=== PATIENT | female | born 1960 | race Caucasian/White ===

== ENCOUNTER 2023-05-06 13:33 | Outpatient (CLI) | payer MEDICAID, SELFPAY ==
[2023-05-06 13:31] LABS: Abs Immature Grans 0.04 10^3/uL (0.0-0.06); Absolute Basophil Count 0.08 10^3/uL (0.0-0.2); Absolute Eosinophil Count 0.01 10^3/uL (0.0-0.7); Absolute Lymphocyte Count 1.64 10^3/uL (1.2-3.4); Absolute Monocyte Count 0.45 10^3/uL (0.1-0.8); Absolute Neutrophil Count 8.42 10^3/uL (1.2-6.7); Basophils % 0.8; Eosinophils % 0.1; HCT 32.3 % (36.0-46.0); HGB 10.2 g/dL (11.2-15.7); Immature Grans % 0.4; Lymphocytes % 15.4; MCH 27.6 pg (27.0-33.0); MCHC 31.6 % (32.0-36.0); MCV 88 fL (80-95); MPV 9.2 fL (8.0-11.0); Monocytes % 4.2; Neutrophils % 79.1; Platelet Count 559 10^3/uL (130-400); RBC 3.69 10^6/uL (3.93-5.22); RDW 16.6 % (11.7-14.6); RDW-SD 53.5 fL; WBC 10.64 10^3/uL (4.4-10.8)
--- OUTSIDE RECORDS SUMMARY | 2023-05-06 13:34 | XMS_ITS | Continuity of Care Document ---
Author Name Unknown Organization [facility] Address [address] [place] [address] Encounter [facility] NBR [id number] Date(s): 04/06/23 - 04/06/23 [facility] [address] [place] [address]- [place] Encounter Diagnosis Pancreatic mass(Discharge Diagnosis) - 04/06/23 Portal vein thrombosis(Discharge Diagnosis) - 04/06/23 Other specified diseases of pancreas(Final) - Portal vein thrombosis(Final) - longterm (current) use of anticoagulants(Final) - Nicotine dependence, cigarettes, uncomplicated(Final) - Discharge Disposition: Home f/u External Provider Attending Physician: Elvis Bob MD Admitting Physician: Elvis Bob MD Allergies, Adverse Reactions, Alerts No Known Allergies Assessment and Plan Diagnostic Tests Pending * Lyme Disease (Borrelia Burgdorferi Abs) 04/06/23 * Acute Hepatitis LC 04/06/23 * Blood Culture 04/06/23 * Blood Culture 04/06/23 Medications Augmentin 500 mg-125 mg oral tablet 1 tab, Oral, every 12 hr, X 10 days, # 20 tab, 0 Refill(s), 04/16/23 6:05:00 PM [employer]ULATOR Start Date: 04/06/23 Stop Date: 04/16/23 Status: Ordered Eliquis Starter Pack for Treatment of DVT and PE 5 mg oral tablet 10 mg = 2 tab, Oral, BID, X 7 days, # 28 tab, 0 Refill(s), 04/13/23 6:05:00 PM RU[employer] Start Date: 04/06/23 Stop Date: 04/13/23 Status: Ordered Results Laboratory List Name Date Lactic Acid 04/06/23 Mononucleosis Screen 04/06/23 Automated Diff 04/06/23 .Morphology (LTTL) 04/06/23 CBC w/ Diff 04/06/23 Comprehensive Metabolic Panel (CMP) 03/10 01/29 PT/ INR 04/06/23 TSH w/ Rflx to Free T4 04/06/23 Urinalysis Microscopic 04/06/23 Urinalysis with Micro if Indicated and C ulture if Indicated 04/06/23 Most recent to oldest [Reference Range]: 1 WBC [4.8-10.8 K/mcL] 19.1 K/mcL *HI* (04/06/23 2:20 PM) RBC [4.20-5.40 Million/mcL] 4.18 Million /mcL *LOW* (04/06/23 2:20 PM) Neutro Auto [42.2-75.2 %] 84.0 % *HI* (04/06/23 2:20 PM) Lymph Auto [20.5-51.1 %] 9.4 % *LOW* (04/06/23 2:20 PM) [place] Auto [1.7-9.3 %] 5.6 % (04/06/23 2:20 PM) Basophil Auto [0.0-0.8 %] 0.4 % (04/06/23 2:20 PM) Prothrombin Time [9.1-10.6 seconds] 11.4 seconds *HI* (04/06/23 2:20 PM) INR [0.9-1.1] 1.2 1 *HI* (04/06/23 2:20 PM) BUN [7-25 mg/dL] 10 mg/dL (04/06/23 2:20 PM) UA Color [Yellow] Yellow (04/06/23 2:20 PM) UA WBC [0-3] 0-3 (04/06/23 2:20 PM) Glucose Level [70-109 mg/dL] 108 mg/dL (04/06/23 2:20 PM) Potassium Level [3.5-5.1 mmol/L] 4.0 mmo l/L (04/06/23 2:20 PM) Baso Absolute [0.0-0.2 K/mcL] 0.1 K/mcL (04/06/23 2:20 PM) MCV [81.0-99.0 fL] 83.9 fL (04/06/23 2:20 PM) UA Urobilinogen [0.2] 1.0 *ABN* (04/06/23 2:20 PM) RBC Morph [Normal] Abnormal *ABN* (04/06/23 2:20 PM) UA Bili [Negative] Moderate *ABN* (04/06/23 2:20 PM) UA Ketones [Negative] Trace *ABN* (04/06/23 2:20 PM) AST [13-39 IntlUnit/L] 43 IntlUnit/L *HI* (04/06/23 2:20 PM) ALT [7-52 IntlUnit/L] 78 IntlUnit/L *HI* (04/06/23 2:20 PM) MCHC [32.0-37.0 g/dL] 31.5 g/dL *LOW* (04/06/23 2:20 PM) Osmolality [275-295 mOsm/kg] 270 mOsm/kg *LOW* (04/06/23 2:20 PM) Sodium Level [136-145 mmol/L] 135 mmol/L *LOW* (04/06/23 2:20 PM) UA RBC [0-3] 0-3 (04/06/23 2:20 PM) UA Leuk Est [Negative] Negative (04/06/23 2:20 PM) Lymph Absolute [1.2-3.4 K/mcL] 1.8 K/mcL (04/06/23 2:20 PM) UA Nitrite [Negative] Positive *ABN* (04/06/23 2:20 PM) UA Glucose [Negative] Negative (04/06/23 2:20 PM) Hct [37.0-47.0 %] 35.1 % *LOW* (04/06/23 2:20 PM) UA Bacteria [None Seen] 2+ *ABN* (04/06/23 2:20 PM) Hypochromia 1+ *ABN* (04/06/23 2:20 PM) Calcium Level [8.6-10.3 mg/dL] 9.5 mg/dL (04/06/23 2:20 PM) [place] Absolute [0.1-0.6 K/mcL] 1.1 K/mcL *HI* (04/06/23 2:20 PM) Albumin Level [3.5-5.7 g/dL] 3.5 g/dL (04/06/23 2:20 PM) Protein Total [6.4-8.9 g/dL] 8.1 g/dL (04/06/23 2:20 PM) UA Protein [Negative] 30 *ABN* (04/06/23 2:20 PM) MCH [27.0-31.0 pg] 26.5 pg *LOW* (04/06/23 2:20 PM) Neutro Absolute [1.4-6.5 K/mcL] 16.0 K/m cL *HI* (04/06/23 2:20 PM) Bilirubin Total [0.3-1.0 mg/dL] 0.6 mg/d L (04/06/23 2:20 PM) Hgb [12.0-16.0 g/dL] 11.1 g/dL *LOW* (04/06/23 2:20 PM) Alk Phos [34-104 IntlUnit/L] 288 IntlUni t/L *HI* (04/06/23 2:20 PM) UA Blood [Negative] Moderate *ABN* (04/06/23 2:20 PM) MPV [7.4-10.4 fL] 7.1 fL *LOW* (04/06/23 2:20 PM) UA Spec Grav [1.001-1.030] >=1.030 *NA* (04/06/23 2:20 PM) Platelets [130-400 K/mcL] 505 K/mcL *HI* (04/06/23 2:20 PM) CO2 [21-31 mmol/L] 24 mmol/L (04/06/23 2:20 PM) Eos Absolute [0.0-0.2 K/mcL] 0.1 K/mcL (04/06/23 2:20 PM) Lactic Acid Lvl [0.5-2.2 mmol/L] 1.2 mmo l/L (04/06/23 5:45 PM) UA Squam Epithelial [0-3] 10-25 *ABN* (04/06/23 2:20 PM) TSH [0.45-5.33 mcIntlUnit/mL] 1.42 mcInt lUnit/mL (04/06/23 2:20 PM) UA pH [5.00-9.00] 5.00 (04/06/23 2:20 PM) UA Appear [Clear] Slightly Cloudy *ABN* (04/06/23 2:20 PM) Chloride Level [98-107 mmol/L] 98 mmol/L (04/06/23 2:20 PM) RDW-CV [11.5-14.5 %] 13.8 % (04/06/23 2:20 PM) A/G Ratio [1.0-2.5 g/dL] 0.8 g/dL *LOW* (04/06/23 2:20 PM) BUN/Creat Ratio [8.0-20.0] 16.7 (04/06/23 2:20 PM) Globulin [2.3-3.5 g/dL] 4.6 g/dL *HI* (04/06/23 2:20 PM) Slide Review Morph Only (04/06/23 2:20 PM) UA Culture Ind?. [No] No 2 (04/06/23 2:20 PM) Urine Srce Clean Catch (04/06/23 2:20 PM) Creatinine Level [0.60-1.20 mg/dL] 0.60 mg/dL (04/06/23 2:20 PM) Plt Estimation Increased *ABN* (04/06/23 2:20 PM) Anion Gap [3.0-12.0] 13.0 *HI* (04/06/23 2:20 PM) Eos, Auto [0.00-3.00 %] 0.60 % (04/06/23 2:20 PM) eGFR CKD-EPI [>=60 mL/min/1.73 m2] 103 m L/min/1.73 m2 (04/06/23 2:20 PM) Mononucleosis Screen [Negative] Negative (04/06/23 4:38 PM) 1Interpretive Data: THERAPEUTIC INR RANGES FOR WARFARIN Uncomplicated venous thromboembolic disease 2-3 Lupus Anticoagulant and recurrent thrombosis 3-3.5 Mechanical prosthetic valve or recurrent thrombosis 2.5-3.5 2Result Comment: Excessive squamous cells indicate superficial contamination; specimen is not suitable for culture. If a culture is clinically indicated, please submit a true clean catch specimen. Less than 1cc of urine received. Microscopic performed on unspun urine. Radiology Reports * Exam Date Time Procedure Performing Provider Status 04/06/23 4:[address] Abdomen and Pelvis w/ Contrast Col Lori lyons; Modified Notes: (CT Abdomen and Pelvis w/ Contrast) Reason For Exam: abd pain CT Abdomen and Pelvis w/ Contrast ADDENDUM THIS REPORT CONTAINS FINDINGS THAT MAY BE CRITICAL TO PATIENT CARE. The findings were verbally communicated via telephone conference with Margoth Arguelles at 5:23 PM EST on 04/06/2023. The findings were acknowledged and understood. THIS DOCUMENT HAS BEEN ELECTRONICALLY SIGNED BY DAVID CASSIDY MD on 04/06/2023 05:23 PM Final Signed by: David Cassidy MD Signed (Electronic Signature): 04/06/2023 5:[address] Abdomen and Pelvis w/ Contrast PROCEDURE INFORMATION: Exam: CT Abdomen And Pelvis With Contrast Exam date and time: 04/06/2023 4:40 PM Age: 62 years old Clinical indication: Abdominal pain; Acute; Additional info: Abd pain TECHNIQUE: Imaging protocol: Computed tomography of the abdomen and pelvis with contrast. Radiation optimization: All CT scans at this facility use at least one of these dose optimization techniques: automated exposure control; mA and/or kV adjustment per patient size (includes targeted exams where dose is matched to clinical indication); or iterative reconstruction. Contrast material: 300; Contrast volume: 100 ml; Contrast route: INTRAVENOUS (IV); REPORTING DATA: Count of CT and Cardiac NM exams in prior 12 months: This patient has received 0 known CTs and 0 known cardiac nuclear medicine studies in the 12 months prior to the current study. COMPARISON: CR XR CHEST, 2 VIEWS 04/06/2023 4:40 PM FINDINGS: Lungs: No consolidation, lung nodules, or pleural effusions. Liver: A 7.3 x 5.4 cm low-density mass is present in segment 5 of the liver. Segment 6 has a 4.5 cm low-density mass causes bulging of the liver capsule. Two low-density masses are present in segment 7 of the liver, the largest measuring 2.7 cm. Gallbladder and bile ducts: Gallbladder is contracted and has calcifications in its anterior wall. One or more calcified stones are suspected in the gallbladder neck. No pericholecystic fluid. No biliary ductal dilatation. Pancreas: A low-density 4.8 x 3 cm mass is present in the head of the pancreas and is in contact with 50% of the circumference of the portal vein. No other pancreas masses or ductal dilatation. Spleen: No splenomegaly. No masses or surrounding fluid. Adrenal glands: No mass. Kidneys and ureters: No hydronephrosis, calcified stones, or masses. Stomach and bowel: No intestinal masses, bowel wall thickening, or abnormal dilatation. Appendix: No evidence of appendicitis. Intraperitoneal space: No free air. No masses or significant fluid collection. Vasculature: Thrombus at the bifurcation of the portal vein causes near occlusion. Distal superior mesenteric vein has occluding thrombus. Lymph nodes: No enlarged lymph nodes. Urinary bladder: No masses or asymmetric wall thickening. Reproductive: Retroflexed uterus is appropriate in size and shape and has no myometrial masses. Bones/joints: No acute fracture or bone lesions. Soft tissues: No masses or other abnormalities. IMPRESSION: 1. Mass in the posterior head of the pancreas measures 4.8 x 3 cm and is in contact with 50% of the circumference of the main portal vein. 2. Near occluding portal vein thrombosis at the bifurcation. 3. 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 4. Several, low-density, metastatic liver masses, the largest in segment 5 measuring 7.3 cm. 5. Contracted gallbladder has a few calcified stones and has mild wall calcification which may indicate adenomyomatosis. No biliary ductal dilatation. THIS DOCUMENT HAS BEEN ELECTRONICALLY SIGNED BY DAVID CASSIDY MD on 04/06/2023 05:19 PM Final Signed by: David Cassidy MD Signed (Electronic Signature): 04/06/2023 5:19 pm * Exam Date Time Procedure Performing Provider Status 04/06/23 4:51 PM XR Chest 2 Views Reyes Pipera; Ksenia th (Verified) Notes: (XR Chest 2 Views) Reason For Exam: fever;Chest pain XR Chest 2 Views PROCEDURE INFORMATION: Exam: XR Chest Exam date and time: 04/06/2023 4:40 PM Age: 62 years old Clinical indication: Pain; Chest pressure; Additional info: Chest pain TECHNIQUE: Imaging protocol: Radiologic exam of the chest. Views: 2 views. COMPARISON: No relevant prior studies available. FINDINGS: Lungs: There are streaky linear bibasilar opacities. No consolidation Pleural spaces: Unremarkable. No pleural effusion. No pneumothorax. Heart/Mediastinum: Unremarkable. No cardiomegaly. Bones/joints: Unremarkable. IMPRESSION: Bibasilar scarring versus subsegmental atelectasis THIS DOCUMENT HAS BEEN ELECTRONICALLY SIGNED BY KEVYN FRANCES MD on 04/06/2023 07:27 PM Final Signed by: Kevyn Frances MD Signed (Electronic Signature): 04/06/2023 7:27 pm Vital Signs Most recent to oldest [Reference Range]: 1 Temperature Oral [35.8-37.3 Deg C] 37.1 Deg C (04/06/23 1:55 PM) Peripheral Pulse Rate [60-100 bpm] 98 bp m (04/06/23 1:55 PM) Blood Pressure [90-140/60-90 mmHg] 128/8 2mmHg (04/06/23 1:55 PM) Mean Arterial Pressure, Cuff [70-110 mmH g] 97 mmHg (04/06/23 1:55 PM) Weight 74.69 kg (04/06/23 1:55 PM) Weight Dosing 74.690 kg (04/06/23 1:55 PM) Height 170.18 cm (04/06/23 1:55 PM) Body Mass Index 25.79 kg/m2 (04/06/23 1:55 PM) Social History Social History Type Response Tobacco Current everyday tob acco user Tobacco Use:. 1 pk per day. Sex Hospital Discharge Instructions Patient Education 04/06/2023 18:15:19 Portal Vein Thrombosis Portal Vein Thrombosis Portal vein thrombosis (PVT) is a blockage from a blood clot in the vein that carries blood from the intestines to the liver (portal vein). PVT can also develop in the branches of the portal vein. The clot may form quickly or develop over time. PVT may slow down or completely stop blood flow. PVT is treatable, but it can be life-threatening. What are the causes? PVT is caused by a blood clot. In many cases, the cause of the clot is not known. Any condition that increases blood clotting can cause PVT. What increases the risk? You are at risk of PVT if you have any condition that increases the clotting of blood. These conditions include: ??? Scarring of the liver (cirrhosis). ??? Cancer, especially of the liver or pancreas. ??? Infections of the pancreas or gallbladder. ??? Blood-clotting disorders. ??? Surgery or injury of the abdomen. ??? Infllammatory disorders such as Crohn's disease or ulcerative colitis. What are the signs or symptoms? PVT often does not cause signs or symptoms. In some cases, you may have gastrointestinal (GI) bleeding from a backup of blood flow because of the blockage. This is caused by the veins that have become wide (dilated). Other signs and symptoms of PVT may include: ??? Pain in the abdomen. ??? Nausea or vomiting. ??? Swelling of the abdomen from too much fluid (ascites). ??? Fever. ??? Enlarged spleen. ??? Gastrointestinal (GI) bleeding from swollen blood vessels in the esophagus or stomach. If this happens, you may: ??? Vomit blood. ??? Have bloody diarrhea. ??? Have black, tarry stools. How is this diagnosed? This condition may be diagnosed based on your symptoms and risk factors. Your health care provider will: ??? Give you a physical exam. ??? Take imaging studies of your abdomen. These may include ultrasound, CT scan, or MRI. ??? Give you tests to check for liver function or infection. These are also done to confirm the diagnosis. How is this treated? Treatment of PVT depends on the cause and severity of your condition. It may also include treatmentfor any underlying conditions. This condition may be treated with: ??? Medicines to: ??? Break up a blood clot. ??? Prevent clotting (anticoagulants). ??? Lower your blood pressure. ??? Improve blood flow to your liver (octreotide). ??? Surgery to: ??? Stop bleeding in the stomach or esophagus. This procedure is usually done using a scope passed through your mouth (endoscopic surgery). ??? Restore blood flow through the blood clot, or around it (shunt surgery). Follow these instructions at home: Medicines ??? Take euii-kcp-ntlxrty and prescription medicines only as told by your health care provider. ??? If you were prescribed an antibiotic medicine, take it as told by your health care provider. Donot stop using the antibiotic even if you start to feel better. Blood thinners If you are taking blood thinners: ??? Talk with your health care provider before you take any medicines that contain aspirin or NSAIDs, such as ibuprofen. These medicines increase your risk for dangerous bleeding. ??? Get approval from your health care provider before you start taking any new medicines, vitamins, or herbal products. Some of these could interfere with your therapy. ??? Take your medicine exactly as told, at the same time every day. ??? Avoid activities that could cause injury or bruising, and follow instructions about how to prevent falls. ??? Wear a medical alert bracelet or carry a card that lists what medicines you take. Your health care provider may ask you to: ??? Have blood tests done regularly so that your medicines may be changed if needed. ??? Limit foods that have vitamin K. Vitamin K affects how some blood thinners work in the body. ??? Some common foods that contain high amounts of vitamin K include kale, spinach, and broccoli. ??? Work with a diet and supervisor nutritional yeast (dietitian) to make an eating plan that is right for you. Lifestyle ??? Eat foods that are high in fiber, such as fresh fruits and vegetables, whole grains, and beans. ??? Limit foods that are high in fat and processed sugars, such as fried and sweet foods. ??? Do not use any products that contain nicotine or tobacco. These products include cigarettes, chewing tobacco, and vaping devices, such as e-cigarettes. If you need help quitting, ask your health care provider. ??? Do not drink alcohol. Alcohol can damage your liver. ??? Ask your health care provider if you have other fluid or diet restrictions. General instructions ??? Return to your normal activities as told by your health care provider. Ask your health care provider what activities are safe for you. ??? Keep all follow-up visits. Your health care provider will monitor your condition and you may beasked to have regular blood tests if you are taking blood thinners. Contact a health care provider if: ??? You have chills or a fever. ??? You have any signs or symptoms that get worse or come back. ??? There is blood in your stool. ??? You have black, tarry stools. Get help right away if: ??? You vomit blood. ??? You have fresh blood or blood clots in your stool. Summary ??? Portal vein thrombosis (PVT) is a blockage from a blood clot in the vein that carries blood from your intestines to your liver (portal vein). Any condition that increases blood clotting can causePVT. ??? PVT often does not cause signs or symptoms but may cause gastrointestinal bleeding, which may cause a backup of blood. ??? Sometimes, PVT can cause swelling in the abdomen from fluid buildup (ascites), pain in the abdomen, and bleeding from the esophagus or stomach. ??? Treatment of PVT depends on the cause and severity of your condition. Treatment may include medicines and sometimes surgery. ??? You may be asked to limit your intake of foods that have vitamin K. Vitamin K may affect the way some blood thinners work in the body. This information is not intended to replace advice given to you by your health care provider. Make sure you discuss any questions you have with your health care provider. Document Revised: 05/20/2022 Document Reviewed: 05/20/2022 [employer] Patient Education ?? 2022 [employer] Follow Up Care 04/06/2023 13:55:51 With:Follow up with specialist Address:Unknown When:1 month Physician Emergency department Note * LAMAR Hand: PERFORM Event Display: ED Note Physician Authored Date: [id number] ANDRESSA EUGENE Daryl :1960 Age:62 years Sex:Female Visit Date:04/06/2023 Basic Information Time Seen: LAMAR Hand / 04/06/2023 14:06 Chief Complaint fever , hot / cold chills x week , seen in . NEG strep & Covid . presents ??ddue to not being better ??- no work x 1 week . NO PCP History Of Present Illness: Patient is a 62-year-old female here for concerns of generalized fatigue and fevers over the past week. ??Patient notes chronic fatigue for months??and states that she typically has a nap midway through the day and still goes to bed early however this has been worsening over the past 2 weeks. ??Sheis also now noticing fevers that happen sporadically throughout the day??for the past week. ??Tmax has been 102.4 F. ??When she??is having a fever she experiences??chills and sweats as well. ??Statesthat for the past??week she is woken up??with night sweats. ??Denies any headache, dizziness, coughor shortness of breath. ??She denies chest pain. ??Denies any abdominal pain nausea vomiting??or diarrhea. ??Denies any??dysuria urgency or frequency. She was seen in an urgent care last week and tested negative for COVID and the flu. Review of Systems: See HPI Physical Exam Vitals & Measurements T:??37.1?C ??(Oral)?? HR:??98??(Peripheral)?? BP:??128/82?? SpO2:??99%?? HT:??170.18??cm?? WT:??74.69??kg?? BMI:??25.79?? General: Patient is alert and engaging, appears well. Is in no acute distress. Speaking comfortablyin full sentences.?? Constitutional: No fevers, chills or diaphoresis.?? HEENT: Head normocephalic and atraumatic. Neck supple with FROM w/o lymphadenopathy or JVD. Tracheamidline. No c-spine tenderness. EOMs intact w/o pain. Pupils equal and reactive to light. Respiratory: ??No obvious work of breathing, regular rate. BS equal b/l, clear to auscultation. Cardiovascular: Heart regular rate and rhythm w/o murmurs, rubs or gallops. No peripheral edema present.?? GI: normoactive BS. Abdomen soft non tender, nondistended without guarding, rebound or rigidity. NoHSM Extremities: No obvious deformities. FROM.?? Integumentary: Skin warm and pink. No rashes or ecchymosis present.?? Neuro: CN III-XII grossly intact.?? Psychiatric: acting appropriate for age and circumstance. Normal mood without obvious ??affect.?? Medical Decision Making: Patient is a pleasant??62-year-old female here for concerns of fatigue and intermittent fever for the past week. ??Vitals obtained and reviewed. ??She is afebrile while in the emergency department, blood pressure 128/82, pulse 98 and oxygen 99 on room air.?She appears comfortable??on the bed in no acute distress.?Exam as described above. ??She is not experiencing??any respiratory symptoms??or abdominal pain??on palpation.?Labs obtained showing elevated WBC, liver enzymes and platelets.??Also concern??for??infection??in her urine. ??Initially concern for pyelonephritis??with a positive UA and history of nausea. ??However because of the elevated liver enzymes and fever I did obtain a CT of the abdomen with contrast,??Monospot and hepatitis panel. ??Lactic 1.2.?? Monospot negative. ??CT scan showed pancreatic mass in contact with 50% of the main portal vein.?? Portal vein thrombosis as well as occluding thrombus in the distal superior mesenteric vein 17:52 call made to [facility] [place]??for consult with GI??and likely transfer. 18:[address] Hooks, who reviewed the scans and??believes it likely to be a??pancreatic adenocarcinoma with metastasis to the??liver.?? Says because the patient is??not experiencing any pain, able to tolerate p.o. fluids and food??and is having no ductal dilation of the pancreatic or thebile duct there is no need for emergent??biopsy or stenting. ??She does recommend??Eliquis for the thrombosis and??close??follow-up in office. ??States that she will have her??schedulers contact the patient for follow-up next week. I discussed the possibility of??malignancy??and the CT findings with the patient and her family in depth. ??All questions??that they have currently were answered. ??Will also start on Augmentin to cover for abdominal infection as well as suspected pyelonephritis. Procedure No Qualifying Data Assessment/Plan 1.??Pancreatic mass??K86.89 Patient discharged home with plans to talk to [facility] schedular tomorrow to make plans for follow up within 7 days. Started on Eliquis and Augmentin. Strict return precautions with fever, abdominal pains, dizziness, syncope, chest pains, shortness of breath or any falls. Ordered: Augmentin 500 mg-125 mg oral tablet, 1 tab, Oral, every 12 hr, X 10 days, # 20 tab, 0 Refill(s), 04/16/23 19:05:00 EST amoxicillin-clavulanate 875 mg-125 mg oral tablet, 1 tab, Oral, Tab, Once, Antibiotic Indication UTI, complicated/pyelonephritis, First Dose: 04/06/23 20:00:00 EST, Stop Date: 04/06/23 20:00:00 EST, Physician Stop, Routine, augmentin Eliquis, 10 mg = 2 tab, Oral, Tab, Once, First Dose: 04/06/23 20:00:00 EST, Stop Date: 04/06/23 20:00:00 EST, Physician Stop, Routine Eliquis Starter Pack for Treatment of DVT and PE 5 mg oral tablet, 10 mg = 2 tab, Oral, BID, X 7 days, # 28 tab, 0 Refill(s), 04/13/23 19:05:00 EST Discharge Patient, 04/06/23 19:18:00 EST ?? 2.??Portal vein thrombosis??I81 Ordered: Augmentin 500 mg-125 mg oral tablet, 1 tab, Oral, every 12 hr, X 10 days, # 20 tab, 0 Refill(s), 04/16/23 19:05:00 EST amoxicillin-clavulanate 875 mg-125 mg oral tablet, 1 tab, Oral, Tab, Once, Antibiotic Indication UTI, complicated/pyelonephritis, First Dose: 04/06/23 20:00:00 EST, Stop Date: 04/06/23 20:00:00 EST, Physician Stop, Routine, augmentin Eliquis, 10 mg = 2 tab, Oral, Tab, Once, First Dose: 04/06/23 20:00:00 EST, Stop Date: 04/06/23 20:00:00 EST, Physician Stop, Routine Eliquis Starter Pack for Treatment of DVT and PE 5 mg oral tablet, 10 mg = 2 tab, Oral, BID, X 7 days, # 28 tab, 0 Refill(s), 04/13/23 19:05:00 EST Discharge Patient, 04/06/23 19:18:00 EST ?? Orders: Acute Hepatitis LC, Blood, Stat, 04/06/23 16:10:00 EST, Once, Nurse collect Blood Culture, Periph Bld, Arm R, Routine collect, RT - Routine, 04/06/23 17:30:00 EST, Once, Lab Collect, Print Label Blood Culture, Periph Bld, Arm R, Routine collect, RT - Routine, 04/06/23 17:30:00 EST, Once, Lab Collect, Print Label Lyme Disease (Borrelia Burgdorferi Abs), Blood, Stat, 04/06/23 14:29:00 EST, Once, Nurse collect XR Chest 2 Views, 04/06/23 16:08:00 EST, Stat, Reason: Chest pain, Reason: fever, Transport Mode: Stretcher Patient Education Portal Vein Thrombosis Follow Up With When Contact Information Follow up with specialist Within 1 month Additional Instructions: Medication Reconciliation New Prescription amoxicillin-clavulanate (Augmentin 500 mg-125 mg oral tablet)1 tab Oral (given by mouth) every 12 hours for 10 Days. Refills: 0. ?? apixaban (Eliquis Starter Pack for Treatment of DVT and PE 5 mg oral tablet)2 tab Oral (given by mouth) 2 times a day for 7 Days. Refills: 0. Problem List/Past Medical History Ongoing Tobacco user Historical No qualifying data Medication Administration Given Sodium Chloride 0.9%, 1000 mL, Hydration Bolus amoxicillin-clavulanate 875 mg-125 mg oral tablet, 1 tab, Oral. For: Pancreatic mass,??Portal vein thrombosis Eliquis, 10 mg, Oral. For: Pancreatic mass,??Portal vein thrombosis Allergies No Known Allergies Social History Electronic Cigarette/Vaping Electronic Cigarette Use: Never. Tobacco Current everyday tobacco user Tobacco Use:. 1 pk per day. Diagnostic Results CT Abdomen and Pelvis w/ Contrast 04/06/2023 17:24 EST XR Chest 2 Views 04/06/2023 19:28 EST XR Chest 2 Views ?? 04/06/23 16:40:20 PROCEDURE INFORMATION: Exam: XR Chest Exam date and time: 04/06/2023 4:40 PM Age: 62 years old Clinical indication: Pain; Chest pressure; Additional info: Chest pain ?? TECHNIQUE: Imaging protocol: Radiologic exam of the chest. Views: 2 views. ?? COMPARISON: No relevant prior studies available. ?? FINDINGS: Lungs: There are streaky linear bibasilar opacities. No consolidation Pleural spaces: Unremarkable. No pleural effusion. No pneumothorax. Heart/Mediastinum: Unremarkable. No cardiomegaly. Bones/joints: Unremarkable. ?? IMPRESSION: Bibasilar scarring versus subsegmental atelectasis ? THIS DOCUMENT HAS BEEN ELECTRONICALLY SIGNED BY KEVYN FRANCES MD on 04/06/2023 07:27 PM ?? Signed By: Kevyn Frances MD ?? CT Abdomen and Pelvis w/ Contrast ?? 04/06/23 16:40:33 PROCEDURE INFORMATION: Exam: CT Abdomen And Pelvis With Contrast Exam date and time: 04/06/2023 4:40 PM Age: 62 years old Clinical indication: Abdominal pain; Acute; Additional info: Abd pain ?? TECHNIQUE: Imaging protocol: Computed tomography of the abdomen and pelvis with contrast. Radiation optimization: All CT scans at this facility use at least one of these dose optimization techniques: automated exposure control; mA and/or kV adjustment per patient size (includes targeted exams where dose is matched to clinical indication); or iterative reconstruction. Contrast material: 300; Contrast volume: 100 ml; Contrast route: INTRAVENOUS (IV); ?? REPORTING DATA: Count of CT and Cardiac NM exams in prior 12 months: This patient has received 0 known CTs and 0 known cardiac nuclear medicine studies in the 12 months prior to the current study. ?? COMPARISON: CR XR CHEST, 2 VIEWS 04/06/2023 4:40 PM ?? FINDINGS: Lungs: No consolidation, lung nodules, or pleural effusions. ?? Liver: A 7.3 x 5.4 cm low-density mass is present in segment 5 of the liver. Segment 6 has a 4.5 cm low-density mass causes bulging of the liver capsule. Two low-density masses are present in segment 7 of the liver, the largest measuring 2.7 cm. Gallbladder and bile ducts: Gallbladder is contracted and has calcifications in its anterior wall. One or more calcified stones are suspected in the gallbladder neck. No pericholecystic fluid. No biliary ductal dilatation. Pancreas: A low-density 4.8 x 3 cm mass is present in the head of the pancreas and is in contact with 50% of the circumference of the portal vein. No other pancreas masses or ductal dilatation. Spleen: No splenomegaly. No masses or surrounding fluid. Adrenal glands: No mass. Kidneys and ureters: No hydronephrosis, calcified stones, or masses. Stomach and bowel: No intestinal masses, bowel wall thickening, or abnormal dilatation. Appendix: No evidence of appendicitis. ?? Intraperitoneal space: No free air. No masses or significant fluid collection. Vasculature: Thrombus at the bifurcation of the portal vein causes near occlusion. Distal superior mesenteric vein has occluding thrombus. Lymph nodes: No enlarged lymph nodes. Urinary bladder: No masses or asymmetric wall thickening. Reproductive: Retroflexed uterus is appropriate in size and shape and has no myometrial masses. Bones/joints: No acute fracture or bone lesions. Soft tissues: No masses or other abnormalities. ?? IMPRESSION: 1. Mass in the posterior head of the pancreas measures 4.8 x 3 cm and is in contact with 50% of the circumference of the main portal vein. 2. Near occluding portal vein thrombosis at the bifurcation. 3. 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 4. Several, low-density, metastatic liver masses, the largest in segment 5 measuring 7.3 cm. 5. Contracted gallbladder has a few calcified stones and has mild wall calcification which may indicate adenomyomatosis. No biliary ductal dilatation. ? THIS DOCUMENT HAS BEEN ELECTRONICALLY SIGNED BY DAVID CASSIDY MD on 04/06/2023 05:19 PM ?? Signed By: David Cassidy MD ?? 04/06/23 16:40:33 ADDENDUM THIS REPORT CONTAINS FINDINGS THAT MAY BE CRITICAL TO PATIENT CARE. The findings were verbally communicated via telephone conference with Margoth Arguelles at 5:23 PM EST on 04/06/2023. The findings were acknowledged and understood. ?? THIS DOCUMENT HAS BEEN ELECTRONICALLY SIGNED BY DAVID CASSIDY MD on 04/06/2023 05:23 PM ?? Signed By: David Cassidy MD Lab Results CBC and Differential?? LATEST RESULTS?? WBC?? 04/06/23 14:20?? 19.1 ??High?? RBC?? 04/06/23 14:20?? 4.18 ??Low?? Hgb?? 04/06/23 14:20?? 11.1 ??Low?? Hct?? 04/06/23 14:20?? 35.1 ??Low?? MCV?? 04/06/23 14:20?? 83.9?? MCH?? 04/06/23 14:20?? 26.5 ??Low?? MCHC?? 04/06/23 14:20?? 31.5 ??Low?? RDW-CV?? 04/06/23 14:20?? 13.8?? Platelets?? 04/06/23 14:20?? 505 ??High?? MPV?? 04/06/23 14:20?? 7.1 ??Low?? Neutro Auto?? 04/06/23 14:20?? 84.0 ??High?? Lymph Auto?? 04/06/23 14:20?? 9.4 ??Low?? [place] Auto?? 04/06/23 14:20?? 5.6?? Eos, Auto?? 04/06/23 14:20?? 0.60?? Basophil Auto?? 04/06/23 14:20?? 0.4?? Neutro Absolute?? 04/06/23 14:20?? 16.0 ??High?? Lymph Absolute?? 04/06/23 14:20?? 1.8?? [place] Absolute?? 04/06/23 14:20?? 1.1 ??High?? Eos Absolute?? 04/06/23 14:20?? 0.1?? Baso Absolute?? 04/06/23 14:20?? 0.1?? RBC Morph?? 04/06/23 14:20?? Abnormal Abnormal?? Hypochromia?? 04/06/23 14:20?? 1+ Abnormal?? Plt Estimation?? 04/06/23 14:20?? Increased Abnormal?? Slide Review?? 04/06/23 14:20?? Morph Only? Coagulation?? LATEST RESULTS?? Prothrombin Time?? 04/06/23 14:20?? 11.4 ??High?? INR?? 04/06/23 14:20?? 1.2 ??High? Routine Chemistry?? LATEST RESULTS?? Sodium Level?? 04/06/23 14:20?? 135 ??Low?? Potassium Level?? 04/06/23 14:20?? 4.0?? Chloride Level?? 04/06/23 14:20?? 98?? CO2?? 04/06/23 14:20?? 24?? Alk Phos?? 04/06/23 14:20?? 288 ??High?? AST?? 04/06/23 14:20?? 43 ??High?? ALT?? 04/06/23 14:20?? 78 ??High?? BUN?? 04/06/23 14:20?? 10?? Glucose Level?? 04/06/23 14:20?? 108?? Creatinine Level?? 04/06/23 14:20?? 0.60?? BUN/Creat Ratio?? 04/06/23 14:20?? 16.7?? eGFR CKD-EPI?? 04/06/23 14:20?? 103?? Calcium Level?? 04/06/23 14:20?? 9.5?? Protein Total?? 04/06/23 14:20?? 8.1?? Albumin Level?? 04/06/23 14:20?? 3.5?? Globulin?? 04/06/23 14:20?? 4.6 ??High?? A/G Ratio?? 04/06/23 14:20?? 0.8 ??Low?? Bilirubin Total?? 04/06/23 14:20?? 0.6?? Anion Gap?? 04/06/23 14:20?? 13.0 ??High?? Lactic Acid Lvl?? 04/06/23 17:45?? 1.2?? Osmolality?? 04/06/23 14:20?? 270 ??Low? Thyroid Studies?? LATEST RESULTS?? TSH?? 04/06/23 14:20?? 1.42? UA Macroscopic?? LATEST RESULTS?? Urine Srce?? 04/06/23 14:20?? Clean Catch?? UA Color?? 04/06/23 14:20?? Yellow?? UA Appear?? 04/06/23 14:20?? Slightly Cloudy Abnormal?? UA Glucose?? 04/06/23 14:20?? Negative?? UA Bili?? 04/06/23 14:20?? Moderate Abnormal?? UA Ketones?? 04/06/23 14:20?? Trace Abnormal?? UA Spec Grav?? 04/06/23 14:20?? >=1.030?? UA Blood?? 04/06/23 14:20?? Moderate Abnormal?? UA pH?? 04/06/23 14:20?? 5.00?? UA Protein?? 04/06/23 14:20?? 30 Abnormal?? UA Urobilinogen?? 04/06/23 14:20?? 1.0 Abnormal?? UA Nitrite?? 04/06/23 14:20?? Positive Abnormal?? UA Leuk Est?? 04/06/23 14:20?? Negative?? UA Culture Ind?.?? 04/06/23 14:20?? No? UA Microscopic?? LATEST RESULTS?? UA WBC?? 04/06/23 14:20?? 0-3?? UA RBC?? 04/06/23 14:20?? 0-3?? UA Squam Epithelial?? 04/06/23 14:20?? 10-25 Abnormal?? UA Bacteria?? 04/06/23 14:20?? 2+ Abnormal? Infectious Disease?? LATEST RESULTS?? Mononucleosis Screen?? 04/06/23 16:38?? Negative? Electronically Signed on 04/06/23 07:38 PM [facility] Emergency department Discharge instructions * [facility]: PERFORM Event Display: ED Discharge Information Authored Date: [id number] RENATALUZANDRESSA DRUMMOND :1960 Age:62 years Sex:Female Visit Date:04/06/2023 Discharge Instructions We would like to thank you for allowing us to assist you with your healthcare needs. The following includes patient education materials and information regarding your injury/illness. Diagnosis from Today's Visit Pancreatic mass Portal vein thrombosis Discharge Vitals Temperature??(Oral) 98.8 ??F (37.1 ??C) Heart Rate??(Peripheral) 98 Blood Pressure?? 128/82?? Height?? 67.00 in (170.18 cm) Weight?? 164.69 lb (74.69 kg) BMI?? 25.79 Allergies No Known Allergies What to Do Next Instructions from Your Care Team You were evaluated in the emergency department??and on the CT scan of your abdomen??there is concern for a??pancreatic??and liver??masses.?? Also present is a??portal vein??and??superior mesenteric vein thrombosis. ??These are blood clots??in??that vasculature.?? I am also concerned about a possible pyelonephritis. ??I spoken with??Dr. Hooks at [facility] and??she does not believe you need??emergent??stenting or biopsy??however you should be seen for follow-up by gastroenterology within the next week. ??Her camp advisor is going to reach out??to you tomorrow to set up this appointment. ??Please keep this appointment as scheduled.?? I am going to start you on an Augmentin which will cover both abdominal infections as well as??urinary infection??and a blood thinner called Eliquis for the blood clots.?? When taking a blood thinner??there is always a bleeding risks. ??If youdo start??to??feel??dizzy experience a headache??or have any falls or??accidents please be evaluated immediately in the emergency department. ??Please also be evaluated with any worsening of the fevers or any abdominal pains. You Need to Schedule the Following Appointments Follow Up with??Follow up with specialist When:??Within 1 month You were treated today on an emergency basis; it may be landa to contact your primary care provider to notify them of your visit today. You may have been referred to your regular doctor or a specialist, please follow up as instructed. If your condition worsens or you can't get in to see the doctor, contact the Emergency Department. Medications What How Much When Why Instructions Next Dose New amoxicillin-clavulanate (Augmentin 500 mg-125 mg oral tablet) 1 tab Oral (given by mouth) Every 12 hours Pancreatic mass Portal vein thrombosis Duration: 10 Days Printed Prescription New apixaban (Eliquis Starter Pack for Treatment of DVT and PE 5 mg oral tablet) 2 tab Oral (given by mouth) 2 times a day Pancreatic mass Portal vein thrombosis Duration: 7 Days Printed Prescription Education Materials Portal Vein Thrombosis Portal vein thrombosis (PVT) is a blockage from a blood clot in the vein that carries blood from the intestines to the liver (portal vein). PVT can also develop in the branches of the portal vein. The clot may form quickly or develop over time. PVT may slow down or completely stop blood flow. PVT is treatable, but it can be life-threatening. What are the causes? PVT is caused by a blood clot. In many cases, the cause of the clot is not known. Any condition that increases blood clotting can cause PVT. What increases the risk? You are at risk of PVT if you have any condition that increases the clotting of blood. These conditions include: ? Scarring of the liver (cirrhosis). ? Cancer, especially of the liver or pancreas. ? Infections of the pancreas or gallbladder. ? Blood-clotting disorders. ? Surgery or injury of the abdomen. ? Infllammatory disorders such as Crohn's disease or ulcerative colitis. What are the signs or symptoms? PVT often does not cause signs or symptoms. In some cases, you may have gastrointestinal (GI) bleeding from a backup of blood flow because of the blockage. This is caused by the veins that have become wide (dilated). Other signs and symptoms of PVT may include: ? Pain in the abdomen. ? Nausea or vomiting. ? Swelling of the abdomen from too much fluid (ascites). ? Fever. ? Enlarged spleen. ? Gastrointestinal (GI) bleeding from swollen blood vessels in the esophagus or stomach. If this happens, you may: ? Vomit blood. ? Have bloody diarrhea. ? Have black, tarry stools. How is this diagnosed? This condition may be diagnosed based on your symptoms and risk factors. Your health care provider will: ? Give you a physical exam. ? Take imaging studies of your abdomen. These may include ultrasound, CT scan, or MRI. ? Give you tests to check for liver function or infection. These are also done to confirm the diagnosis. How is this treated? Treatment of PVT depends on the cause and severity of your condition. It may also include treatmentfor any underlying conditions. This condition may be treated with: ? Medicines to: ? Break up a blood clot. ? Prevent clotting (anticoagulants). ? Lower your blood pressure. ? Improve blood flow to your liver (octreotide). ? Surgery to: ? Stop bleeding in the stomach or esophagus. This procedure is usually done using a scope passed through your mouth (endoscopic surgery). ? Restore blood flow through the blood clot, or around it (shunt surgery). Follow these instructions at home: Medicines ? Take [id number] and prescription medicines only as told by your health care provider. ? If you were prescribed an antibiotic medicine, take it as told by your health care provider. Do notstop using the antibiotic even if you start to feel better. Blood thinners If you are taking blood thinners: ? Talk with your health care provider before you take any medicines that contain aspirin or NSAIDs, such as ibuprofen. These medicines increase your risk for dangerous bleeding. ? Get approval from your health care provider before you start taking any new medicines, vitamins, orherbal products. Some of these could interfere with your therapy. ? Take your medicine exactly as told, at the same time every day. ? Avoid activities that could cause injury or bruising, and follow instructions about how to prevent falls. ? Wear a medical alert bracelet or carry a card that lists what medicines you take. Your health care provider may ask you to: ? Have blood tests done regularly so that your medicines may be changed if needed. ? Limit foods that have vitamin K. Vitamin K affects how some blood thinners work in the body. ? Some common foods that contain high amounts of vitamin K include kale, spinach, and broccoli. ? Work with a diet and supervisor nutritional yeast (dietitian) to make an eating plan that is right for you. Lifestyle ? Eat foods that are high in fiber, such as fresh fruits and vegetables, whole grains, and beans. ? Limit foods that are high in fat and processed sugars, such as fried and sweet foods. ? Do not use any products that contain nicotine or tobacco. These products include cigarettes, chewing tobacco, and vaping devices, such as e-cigarettes. If you need help quitting, ask your health careprovider. ? Do not drink alcohol. Alcohol can damage your liver. ? Ask your health care provider if you have other fluid or diet restrictions. General instructions ? Return to your normal activities as told by your health care provider. Ask your health care provider what activities are safe for you. ? Keep all follow-up visits. Your health care provider will monitor your condition and you may be asked to have regular blood tests if you are taking blood thinners. Contact a health care provider if: ? You have chills or a fever. ? You have any signs or symptoms that get worse or come back. ? There is blood in your stool. ? You have black, tarry stools. Get help right away if: ? You vomit blood. ? You have fresh blood or blood clots in your stool. Summary ? Portal vein thrombosis (PVT) is a blockage from a blood clot in the vein that carries blood from your intestines to your liver (portal vein). Any condition that increases blood clotting can cause PVT. ? PVT often does not cause signs or symptoms but may cause gastrointestinal bleeding, which may causea backup of blood. ? Sometimes, PVT can cause swelling in the abdomen from fluid buildup (ascites), pain in the abdomen,and bleeding from the esophagus or stomach. ? Treatment of PVT depends on the cause and severity of your condition. Treatment may include medicines and sometimes surgery. ? You may be asked to limit your intake of foods that have vitamin K. Vitamin K may affect the way some blood thinners work in the body. This information is not intended to replace advice given to you by your health care provider. Make sure you discuss any questions you have with your health care provider. Document Revised: 05/20/2022 Document Reviewed: 05/20/2022 [employer] Patient Education ?? 2022 [employer] Tests Performed Radiology CT Abdomen and Pelvis w/ Contrast 04/06/2023 17:24 EST Medications and Immunizations Administered Given Sodium Chloride 0.9%, 1000 mL, Hydration Bolus Lab Test Name Test Result Date/Time WBC 19.1 K/mcL 04/06/2023 14:20 EST RBC 4.18 Million/mcL 04/06/2023 14:20 EST Hgb 11.1 g/dL 04/06/2023 14:20 EST Hct 35.1 % 04/06/2023 14:20 EST MCV 83.9 fL 04/06/2023 14:20 EST MCH 26.5 pg 04/06/2023 14:20 EST MCHC 31.5 g/dL 04/06/2023 14:20 EST RDW-CV 13.8 % 04/06/2023 14:20 EST Platelets 505 K/mcL 04/06/2023 14:20 EST MPV 7.1 fL 04/06/2023 14:20 EST Neutro Auto 84.0 % 04/06/2023 14:20 EST Lymph Auto 9.4 % 04/06/2023 14:20 EST [place] Auto 5.6 % 04/06/2023 14:20 EST Eos, Auto 0.60 % 04/06/2023 14:20 EST Basophil Auto 0.4 % 04/06/2023 14:20 EST Neutro Absolute 16.0 K/mcL 04/06/2023 14:20 EST Lymph Absolute 1.8 K/mcL 04/06/2023 14:20 EST [place] Absolute 1.1 K/mcL 04/06/2023 14:20 EST Eos Absolute 0.1 K/mcL 04/06/2023 14:20 EST Baso Absolute 0.1 K/mcL 04/06/2023 14:20 EST RBC Morph Abnormal 04/06/2023 14:20 EST Hypochromia 1+ 04/06/2023 14:20 EST Plt Estimation Increased 04/06/2023 14:20 EST Slide Review Morph Only 04/06/2023 14:20 EST Prothrombin Time 11.4 seconds 04/06/2023 14:20 EST INR 1.2 04/06/2023 14:20 EST Sodium Level 135 mmol/L 04/06/2023 14:20 EST Potassium Level 4.0 mmol/L 04/06/2023 14:20 EST Chloride Level 98 mmol/L 04/06/2023 14:20 EST CO2 24 mmol/L 04/06/2023 14:20 EST Alk Phos 288 IntlUnit/L 04/06/2023 14:20 EST AST 43 IntlUnit/L 04/06/2023 14:20 EST ALT 78 IntlUnit/L 04/06/2023 14:20 EST BUN 10 mg/dL 04/06/2023 14:20 EST Glucose Level 108 mg/dL 04/06/2023 14:20 EST Creatinine Level 0.60 mg/dL 04/06/2023 14:20 EST BUN/Creat Ratio 16.7 04/06/2023 14:20 EST eGFR CKD-EPI 103 mL/min/1.73 m2 04/06/2023 14:20 EST Calcium Level 9.5 mg/dL 04/06/2023 14:20 EST Protein Total 8.1 g/dL 04/06/2023 14:20 EST Albumin Level 3.5 g/dL 04/06/2023 14:20 EST Globulin 4.6 g/dL 04/06/2023 14:20 EST A/G Ratio 0.8 g/dL 04/06/2023 14:20 EST Bilirubin Total 0.6 mg/dL 04/06/2023 14:20 EST Anion Gap 13.0 04/06/2023 14:20 EST Lactic Acid Lvl 1.2 mmol/L 04/06/2023 17:45 EST Osmolality 270 mOsm/kg 04/06/2023 14:20 EST TSH 1.42 mcIntlUnit/mL 04/06/2023 14:20 EST Urine Srce Clean Catch 04/06/2023 14:20 EST UA Color YELLOW. 04/06/2023 14:20 EST UA Appear SL CLOUDY 04/06/2023 14:20 EST UA Glucose NEGATIVE 04/06/2023 14:20 EST UA Bili MODERATE Clinitek 04/06/2023 14:20 EST UA Ketones TRACE 04/06/2023 14:20 EST UA Spec Grav >=1.030 04/06/2023 14:20 EST UA Blood MODERATE Clinitek 04/06/2023 14:20 EST UA pH 5.00 04/06/2023 14:20 EST UA Protein 30 04/06/2023 14:20 EST UA Urobilinogen 1.0 04/06/2023 14:20 EST UA Nitrite POSITIVE 04/06/2023 14:20 EST UA Leuk Est NEGATIVE 04/06/2023 14:20 EST UA Culture Ind?. No 04/06/2023 14:20 EST UA WBC 0-3 04/06/2023 14:20 EST UA RBC 0-3 04/06/2023 14:20 EST UA Squam Epithelial 10-04/06/2023 14:20 EST UA Bacteria 2+ 04/06/2023 14:20 EST Mononucleosis Screen Negative 04/06/2023 16:38 EST Patient/Sales Supervisor Signature Patient Name:ANDRESSA EUGENE I have received this information and my questions have been answered. Patient/Sales Supervisor Name: Patient/Sales Supervisor Signature: Relationship to Patient: Witness Name/Signature: Date: Electronically Signed on: 04/06/2023 19:18 ESTSigned by:FLEX Patient Care team information Care Team Personnel Name: Mo Zaman Position: Nurse Member Role: ED Nurse Name: Brenda Singh Position: Nurse Member Role: ED Nurse Name: [facility] Position: Physician Member Role: Physician Address: Address: [address] [place] [id number]- [id number] Team Related Persons Name: TK ADAMS Name: CATALINO BERNABE
[2023-05-06 13:48] LABS: ALT 35 U/L (14-59); AST 49 U/L (15-37); Albumin 2.9 g/dL (3.4-5.0); Alkaline Phosphatase 136 U/L (46-116); Anion Gap 10.8 mmol/L (3-11); BUN 16 mg/dL (7-18); Bilirubin, Total 0.3 mg/dL (0.2-1.0); CO2 26.2 mmol/L (21.0-32.0); Calcium 9.5 mg/dL (8.5-10.1); Chloride 99 mmol/L (98-107); Estimated GFR 64.49 (mL/min/1.73m2); FREE T4 0.92 ng/dL (0.76-1.46); Glucose 135 mg/dL (74-106); Potassium 4.2 mmol/L (3.5-5.1); Sodium 136 mmol/L (136-145); TSH 1.25 uIU/mL (0.36-3.74); Total Protein 8.3 g/dL (6.4-8.2)
[2023-05-06 15:24] LABS: Iron 16 ug/dL (50-170); Total Iron Binding Capacity 195 ug/dL (250-450); Transferrin Sat 8 % (15-50)
[2023-05-06 16:23] LABS: Ferritin 292 ng/mL (8-252)
[2023-05-07 13:02] LABS: CEA 9.6 ng/mL (See Note)
== END 2023-05-06 13:34 | disposition home or self-care (01) ==
LOC: LBO 13:33
PROVIDERS: Visit Provider Internal Medicine Hematology & Oncology
DX: C18.9 Malignant neoplasm of colon, unspecified (principal); C78.7 Secondary malignant neoplasm of liver and intrahepatic bile duct; D64.9 Anemia, unspecified; Z79.899 Other long term (current) drug therapy
CPT/HCPCS: 36415; 80053; 82378; 82728; 83540; 83550; 84439; 84443; 85025

== ENCOUNTER 2023-05-27 12:33 | Outpatient (CLI) | payer MEDICAID, SELFPAY ==
[2023-05-27 12:45] LABS: Abs Immature Grans 0.07 10^3/uL (0.0-0.06); Absolute Basophil Count 0.09 10^3/uL (0.0-0.2); Absolute Eosinophil Count 0.56 10^3/uL (0.0-0.7); Absolute Lymphocyte Count 2.77 10^3/uL (1.2-3.4); Absolute Monocyte Count 0.91 10^3/uL (0.1-0.8); Absolute Neutrophil Count 5.63 10^3/uL (1.2-6.7); Basophils % 0.9; Eosinophils % 5.6; HGB 10.3 g/dL (11.2-15.7); Immature Grans % 0.7; Lymphocytes % 27.6; MCH 26.7 pg (27.0-33.0); MCHC 31.2 % (32.0-36.0); MCV 86 fL (80-95); MPV 8.3 fL (8.0-11.0); Monocytes % 9.1; Neutrophils % 56.1; Platelet Count 642 10^3/uL (130-400); RBC 3.86 10^6/uL (3.93-5.22); RDW 17.6 % (11.7-14.6); RDW-SD 53.5 fL; WBC 10.03 10^3/uL (4.4-10.8)
[2023-05-27 13:10] LABS: ALT 37 U/L (14-59); AST 25 U/L (15-37); Albumin 2.5 g/dL (3.4-5.0); Alkaline Phosphatase 81 U/L (46-116); Anion Gap 8.4 mmol/L (3-11); BUN 11 mg/dL (7-18); Bilirubin, Total 0.2 mg/dL (0.2-1.0); CO2 26.6 mmol/L (21.0-32.0); CREATININE 0.6 mg/dL (0.55-1.02); Calcium 9.6 mg/dL (8.5-10.1); Chloride 104 mmol/L (98-107); Estimated GFR 102.69 (mL/min/1.73m2); FREE T4 0.88 ng/dL (0.76-1.46); Glucose 93 mg/dL (74-106); Potassium 4.3 mmol/L (3.5-5.1); Sodium 139 mmol/L (136-145); TSH 1.69 uIU/mL (0.36-3.74); Total Protein 7.7 g/dL (6.4-8.2)
== END 2023-05-27 12:34 | disposition home or self-care (01) ==
LOC: LBO 12:33
PROVIDERS: Visit Provider Internal Medicine Hematology & Oncology
DX: C18.9 Malignant neoplasm of colon, unspecified (principal); C78.7 Secondary malignant neoplasm of liver and intrahepatic bile duct
CPT/HCPCS: 36415; 80053; 82378; 84439; 84443; 85025

== ENCOUNTER 2023-06-17 18:03 | Outpatient (CLI) | payer MEDICAID, SELFPAY ==
[2023-06-17 13:20] LABS: Abs Immature Grans 0.04 10^3/uL (0.0-0.06); Absolute Basophil Count 0.11 10^3/uL (0.0-0.2); Absolute Eosinophil Count 0.38 10^3/uL (0.0-0.7); Absolute Lymphocyte Count 3.26 10^3/uL (1.2-3.4); Absolute Monocyte Count 0.87 10^3/uL (0.1-0.8); Basophils % 1.1; Eosinophils % 3.9; HGB 11.7 g/dL (11.2-15.7); Immature Grans % 0.4; Lymphocytes % 33.4; MCH 26.5 pg (27.0-33.0); MCHC 30.8 % (32.0-36.0); MCV 86 fL (80-95); MPV 8.8 fL (8.0-11.0); Monocytes % 8.9; Neutrophils % 52.3; Platelet Count 607 10^3/uL (130-400); RBC 4.41 10^6/uL (3.93-5.22); RDW 18.8 % (11.7-14.6); RDW-SD 59.4 fL; WBC 9.76 10^3/uL (4.4-10.8)
[2023-06-17 14:01] LABS: ALT 30 U/L (14-59); AST 23 U/L (15-37); Albumin 2.9 g/dL (3.4-5.0); Alkaline Phosphatase 68 U/L (46-116); Anion Gap 10.8 mmol/L (3-11); BUN 10 mg/dL (7-18); Bilirubin, Total 0.2 mg/dL (0.2-1.0); CO2 26.2 mmol/L (21.0-32.0); CREATININE 0.6 mg/dL (0.55-1.02); Calcium 9.5 mg/dL (8.5-10.1); Chloride 103 mmol/L (98-107); Estimated GFR 102.69 (mL/min/1.73m2); FREE T4 0.67 ng/dL (0.76-1.46); Glucose 96 mg/dL (74-106); Potassium 4.2 mmol/L (3.5-5.1); Sodium 140 mmol/L (136-145); TSH 2.01 uIU/mL (0.36-3.74)
[2023-06-17 23:15] LABS: CEA 4.6 ng/mL (See Note)
== END 2023-06-17 18:04 | disposition home or self-care (01) ==
LOC: LBO 06-23 18:04
PROVIDERS: Visit Provider Internal Medicine Hematology & Oncology
DX: C18.9 Malignant neoplasm of colon, unspecified (principal); C78.7 Secondary malignant neoplasm of liver and intrahepatic bile duct
CPT/HCPCS: 36415; 80053; 82378; 84439; 84443; 85025

== ENCOUNTER 2023-08-19 20:25 | Outpatient (CLI) | payer MEDICAID, SELFPAY ==
[2023-08-19 12:27] LABS: Abs Immature Grans 0.02 10^3/uL (0.0-0.06); Absolute Eosinophil Count 0.39 10^3/uL (0.0-0.7); Absolute Lymphocyte Count 2.46 10^3/uL (1.2-3.4); Absolute Monocyte Count 0.71 10^3/uL (0.1-0.8); Absolute Neutrophil Count 5.11 10^3/uL (1.2-6.7); Basophils % 1.1; Eosinophils % 4.4; HCT 41.5 % (36.0-46.0); HGB 13.4 g/dL (11.2-15.7); Immature Grans % 0.2; MCHC 32.3 % (32.0-36.0); MCV 87 fL (80-95); MPV 9.1 fL (8.0-11.0); Monocytes % 8.1; Neutrophils % 58.2; Platelet Count 357 10^3/uL (130-400); RBC 4.78 10^6/uL (3.93-5.22); RDW-SD 50.4 fL; WBC 8.79 10^3/uL (4.4-10.8)
[2023-08-19 12:56] LABS: ALT 23 U/L (14-59); AST 17 U/L (15-37); Albumin 3.3 g/dL (3.4-5.0); Alkaline Phosphatase 72 U/L (46-116); Anion Gap 8.6 mmol/L (3-11); BUN 12 mg/dL (7-18); Bilirubin, Total 0.2 mg/dL (0.2-1.0); CO2 26.4 mmol/L (21.0-32.0); CREATININE 0.6 mg/dL (0.55-1.02); Calcium 9.1 mg/dL (8.5-10.1); Chloride 105 mmol/L (98-107); Estimated GFR 102.69 (mL/min/1.73m2); FREE T4 0.76 ng/dL (0.76-1.46); Glucose 98 mg/dL (74-106); Potassium 3.9 mmol/L (3.5-5.1); Sodium 140 mmol/L (136-145); TSH 2.19 uIU/Ml (0.36-3.74); Total Protein 7.6 g/dL (6.4-8.2)
[2023-08-19 23:34] LABS: CEA 6.6 ng/mL (See Note)
== END 2023-08-19 20:26 | disposition home or self-care (01) ==
LOC: LBO 20:25
PROVIDERS: Visit Provider Internal Medicine Hematology & Oncology
DX: C18.9 Malignant neoplasm of colon, unspecified (principal); C78.7 Secondary malignant neoplasm of liver and intrahepatic bile duct
CPT/HCPCS: 36415; 80053; 82378; 84439; 84443; 85025

== ENCOUNTER 2023-09-09 12:52 | Outpatient (CLI) | payer MEDICAID, SELFPAY ==
[2023-09-09 12:48] LABS: Abs Immature Grans 0.02 10^3/uL (0.0-0.06); Absolute Basophil Count 0.06 10^3/uL (0.0-0.2); Absolute Eosinophil Count 0.28 10^3/uL (0.0-0.7); Absolute Lymphocyte Count 2.78 10^3/uL (1.2-3.4); Absolute Monocyte Count 0.76 10^3/uL (0.1-0.8); Absolute Neutrophil Count 3.57 10^3/uL (1.2-6.7); Basophils % 0.8 %; Eosinophils % 3.7 %; HCT 41.2 % (36.0-46.0); HGB 13.1 g/dL (11.2-15.7); Immature Grans % 0.3 %; Lymphocytes % 37.2 %; MCH 27.9 pg (27.0-33.0); MCHC 31.8 % (32.0-36.0); MCV 88 fL (80-95); MPV 9.2 fL (8.0-11.0); Monocytes % 10.2 %; Neutrophils % 47.8 %; Platelet Count 348 10^3/uL (130-400); RBC 4.69 10^6/uL (3.93-5.22); RDW 15.1 % (11.7-14.6); RDW-SD 47.8 fL; WBC 7.47 10^3/uL (4.4-10.8)
[2023-09-09 13:13] LABS: ALT 24 U/L (14-59); AST 16 U/L (15-37); Albumin 3.4 g/dL (3.4-5.0); Alkaline Phosphatase 70 U/L (46-116); Anion Gap 8.4 mmol/L (3-11); BUN 11 mg/dL (7-18); Bilirubin, Total 0.3 mg/dL (0.2-1.0); CO2 27.6 mmol/L (21.0-32.0); CREATININE 0.6 mg/dL (0.55-1.02); Calcium 9.1 mg/dL (8.5-10.1); Chloride 105 mmol/L (98-107); Estimated GFR 102.06 (mL/min/1.73m2); FREE T4 0.76 ng/dL (0.76-1.46); Glucose 86 mg/dL (74-106); Potassium 4.3 mmol/L (3.5-5.1); Sodium 141 mmol/L (136-145); TSH 1.03 uIU/Ml (0.36-3.74); Total Protein 7.6 g/dL (6.4-8.2)
== END 2023-09-09 12:53 | disposition home or self-care (01) ==
PROVIDERS: Visit Provider Internal Medicine Hematology & Oncology
DX: C18.9 Malignant neoplasm of colon, unspecified (principal); C78.7 Secondary malignant neoplasm of liver and intrahepatic bile duct
CPT/HCPCS: 36415; 80053; 82378; 84439; 84443; 85025

== ENCOUNTER 2023-09-30 14:48 | Outpatient (CLI) | payer MEDICAID, SELFPAY ==
[2023-09-30 12:51] LABS: Abs Immature Grans 0.01 10^3/uL (0.0-0.06); Absolute Basophil Count 0.08 10^3/uL (0.0-0.2); Absolute Eosinophil Count 0.26 10^3/uL (0.0-0.7); Absolute Lymphocyte Count 2.79 10^3/uL (1.2-3.4); Absolute Monocyte Count 0.61 10^3/uL (0.1-0.8); Absolute Neutrophil Count 3.35 10^3/uL (1.2-6.7); Basophils % 1.1 %; Eosinophils % 3.7 %; HCT 41.9 % (36.0-46.0); HGB 13.6 g/dL (11.2-15.7); Immature Grans % 0.1 %; Lymphocytes % 39.3 %; MCH 28.1 pg (27.0-33.0); MCHC 32.5 % (32.0-36.0); MCV 87 fL (80-95); MPV 9.2 fL (8.0-11.0); Monocytes % 8.6 %; Neutrophils % 47.2 %; Platelet Count 358 10^3/uL (130-400); RBC 4.84 10^6/uL (3.93-5.22); RDW 14.2 % (11.7-14.6); RDW-SD 44.8 fL
[2023-09-30 13:14] LABS: ALT 32 U/L (14-59); AST 13 U/L (15-37); Albumin 3.5 g/dL (3.4-5.0); Alkaline Phosphatase 65 U/L (46-116); Anion Gap 8.8 mmol/L (3-11); BUN 10 mg/dL (7-18); Bilirubin, Total 0.3 mg/dL (0.2-1.0); CO2 27.2 mmol/L (21.0-32.0); CREATININE 0.7 mg/dL (0.55-1.02); Calcium 9.3 mg/dL (8.5-10.1); Chloride 104 mmol/L (98-107); Estimated GFR 98.34 (mL/min/1.73m2); FREE T4 0.73 ng/dL (0.76-1.46); Glucose 82 mg/dL (74-106); Potassium 4.3 mmol/L (3.5-5.1); Sodium 140 mmol/L (136-145); TSH 1.22 uIU/Ml (0.36-3.74); Total Protein 7.6 g/dL (6.4-8.2)
[2023-09-30 22:40] LABS: CEA 6.5 ng/mL (See Note)
== END 2023-09-30 14:49 | disposition home or self-care (01) ==
LOC: LBO 14:48
PROVIDERS: Visit Provider Internal Medicine Hematology & Oncology
DX: C18.9 Malignant neoplasm of colon, unspecified (principal); C78.7 Secondary malignant neoplasm of liver and intrahepatic bile duct
CPT/HCPCS: 36415; 80053; 82378; 84439; 84443; 85025

== ENCOUNTER 2023-10-21 12:43 | Outpatient (CLI) | payer MEDICAID, SELFPAY ==
[2023-10-21 09:15] LABS: Abs Immature Grans 0.02 10^3/uL (0.0-0.06); Absolute Eosinophil Count 0.37 10^3/uL (0.0-0.7); Absolute Lymphocyte Count 2.75 10^3/uL (1.2-3.4); Absolute Monocyte Count 0.54 10^3/uL (0.1-0.8); Absolute Neutrophil Count 2.58 10^3/uL (1.2-6.7); Basophils % 1.6 %; Eosinophils % 5.8 %; HCT 41.5 % (36.0-46.0); HGB 13.4 g/dL (11.2-15.7); Immature Grans % 0.3 %; Lymphocytes % 43.2 %; MCH 28.8 pg (27.0-33.0); MCHC 32.3 % (32.0-36.0); MCV 89 fL (80-95); MPV 9.3 fL (8.0-11.0); Monocytes % 8.5 %; Neutrophils % 40.6 %; Platelet Count 356 10^3/uL (130-400); RBC 4.66 10^6/uL (3.93-5.22); RDW 14.3 % (11.7-14.6); WBC 6.36 10^3/uL (4.4-10.8)
[2023-10-21 09:43] LABS: ALT 36 U/L (14-59); AST 15 U/L (15-37); Albumin 3.6 g/dL (3.4-5.0); Alkaline Phosphatase 74 U/L (46-116); Anion Gap 8.6 mmol/L (3-11); BUN 10 mg/dL (7-18); Bilirubin, Total 0.3 mg/dL (0.2-1.0); CO2 27.4 mmol/L (21.0-32.0); CREATININE 0.7 mg/dL (0.55-1.02); Calcium 9.5 mg/dL (8.5-10.1); Chloride 103 mmol/L (98-107); Estimated GFR 98.34 (mL/min/1.73m2); FREE T4 0.62 ng/dL (0.76-1.46); Glucose 90 mg/dL (74-106); Potassium 4.2 mmol/L (3.5-5.1); Sodium 139 mmol/L (136-145); TSH 5.34 uIU/Ml (0.36-3.74); Total Protein 7.8 g/dL (6.4-8.2)
[2023-10-21 20:41] LABS: CEA 7.1 ng/mL (See Note)
== END 2023-10-21 12:44 | disposition home or self-care (01) ==
LOC: LBO 12:44
PROVIDERS: Visit Provider Internal Medicine Hematology & Oncology
DX: C18.9 Malignant neoplasm of colon, unspecified (principal); C78.7 Secondary malignant neoplasm of liver and intrahepatic bile duct
CPT/HCPCS: 36415; 80053; 82378; 84439; 84443; 85025

== ENCOUNTER 2023-11-11 02:38 | Outpatient (CLI) | payer MEDICAID, SELFPAY ==
[2023-11-11 07:36] LABS: Abs Immature Grans 0.03 10^3/uL (0.0-0.06); Absolute Basophil Count 0.07 10^3/uL (0.0-0.2); Absolute Eosinophil Count 0.33 10^3/uL (0.0-0.7); Absolute Lymphocyte Count 2.99 10^3/uL (1.2-3.4); Absolute Monocyte Count 0.74 10^3/uL (0.1-0.8); Absolute Neutrophil Count 3.36 10^3/uL (1.2-6.7); Basophils % 0.9 %; Eosinophils % 4.4 %; HCT 40.2 % (36.0-46.0); Immature Grans % 0.4 %; Lymphocytes % 39.8 %; MCH 29.2 pg (27.0-33.0); MCHC 32.3 % (32.0-36.0); MCV 90 fL (80-95); MPV 9.3 fL (8.0-11.0); Monocytes % 9.8 %; Neutrophils % 44.7 %; Platelet Count 354 10^3/uL (130-400); RBC 4.45 10^6/uL (3.93-5.22); RDW 14.6 % (11.7-14.6); RDW-SD 48.4 fL; WBC 7.52 10^3/uL (4.4-10.8)
[2023-11-11 08:01] LABS: ALT 29 U/L (14-59); AST 16 U/L (15-37); Albumin 3.3 g/dL (3.4-5.0); Alkaline Phosphatase 77 U/L (46-116); Anion Gap 6.3 mmol/L (3-11); BUN 10 mg/dL (7-18); Bilirubin, Total 0.24 mg/dL (0.2-1.0); CO2 27.7 mmol/L (21.0-32.0); CREATININE 0.7 mg/dL (0.55-1.02); Calcium 9.3 mg/dL (8.5-10.1); Chloride 105 mmol/L (98-107); Estimated GFR 98.34 (mL/min/1.73m2); FREE T4 0.73 ng/dL (0.76-1.46); Glucose 92 mg/dL (74-106); Sodium 139 mmol/L (136-145); TSH 4.27 uIU/Ml (0.36-3.74); Total Protein 7.5 g/dL (6.4-8.2)
== END 2023-11-11 02:39 | disposition home or self-care (01) ==
LOC: LBO 02:39
PROVIDERS: Visit Provider Internal Medicine Hematology & Oncology
DX: C18.9 Malignant neoplasm of colon, unspecified (principal); C78.7 Secondary malignant neoplasm of liver and intrahepatic bile duct
CPT/HCPCS: 36415; 80053; 82378; 84439; 84443; 85025

== ENCOUNTER 2023-12-02 01:54 | Outpatient (CLI) | payer MEDICAID, SELFPAY ==
[2023-12-02 09:33] LABS: Abs Immature Grans 0.03 10^3/uL (0.0-0.06); Absolute Basophil Count 0.08 10^3/uL (0.0-0.2); Absolute Eosinophil Count 0.26 10^3/uL (0.0-0.7); Absolute Lymphocyte Count 2.56 10^3/uL (1.2-3.4); Absolute Monocyte Count 0.62 10^3/uL (0.1-0.8); Absolute Neutrophil Count 4.28 10^3/uL (1.2-6.7); Eosinophils % 3.3 %; HCT 42.2 % (36.0-46.0); HGB 13.8 g/dL (11.2-15.7); Immature Grans % 0.4 %; Lymphocytes % 32.7 %; MCH 29.3 pg (27.0-33.0); MCHC 32.7 % (32.0-36.0); MCV 90 fL (80-95); MPV 9.3 fL (8.0-11.0); Monocytes % 7.9 %; Neutrophils % 54.7 %; Platelet Count 405 10^3/uL (130-400); RBC 4.71 10^6/uL (3.93-5.22); RDW 14.7 % (11.7-14.6); RDW-SD 48.6 fL; WBC 7.83 10^3/uL (4.4-10.8)
[2023-12-02 10:00] LABS: ALT 18 U/L (14-59); AST 12 U/L (15-37); Albumin 3.5 g/dL (3.4-5.0); Alkaline Phosphatase 74 U/L (46-116); Anion Gap 8.2 mmol/L (3-11); BUN 10 mg/dL (7-18); Bilirubin, Total 0.22 mg/dL (0.2-1.0); CO2 26.8 mmol/L (21.0-32.0); CREATININE 0.7 mg/dL (0.55-1.02); Calcium 9.4 mg/dL (8.5-10.1); Chloride 104 mmol/L (98-107); Estimated GFR 98.34 (mL/min/1.73m2); FREE T4 1.07 ng/dL (0.76-1.46); Glucose 88 mg/dL (74-106); Sodium 139 mmol/L (136-145); TSH 0.72 uIU/Ml (0.36-3.74); Total Protein 7.7 g/dL (6.4-8.2)
[2023-12-02 19:24] LABS: CEA 6.8 ng/mL (See Note)
== END 2023-12-02 01:55 | disposition home or self-care (01) ==
LOC: LBO 01:54
PROVIDERS: Visit Provider Internal Medicine Hematology & Oncology
DX: C18.9 Malignant neoplasm of colon, unspecified (principal); C78.7 Secondary malignant neoplasm of liver and intrahepatic bile duct
CPT/HCPCS: 36415; 80053; 82378; 84439; 84443; 85025

== ENCOUNTER 2023-12-23 01:31 | Outpatient (CLI) | payer MEDICAID, SELFPAY ==
[2023-12-23 10:57] LABS: Abs Immature Grans 0.01 10^3/uL (0.0-0.06); Absolute Basophil Count 0.08 10^3/uL (0.0-0.2); Absolute Eosinophil Count 0.36 10^3/uL (0.0-0.7); Absolute Lymphocyte Count 3.07 10^3/uL (1.2-3.4); Absolute Monocyte Count 0.54 10^3/uL (0.1-0.8); Absolute Neutrophil Count 3.13 10^3/uL (1.2-6.7); Basophils % 1.1 %; HCT 43.2 % (36.0-46.0); HGB 13.8 g/dL (11.2-15.7); Immature Grans % 0.1 %; Lymphocytes % 42.7 %; MCH 29.1 pg (27.0-33.0); MCHC 31.9 % (32.0-36.0); MCV 91 fL (80-95); MPV 9.4 fL (8.0-11.0); Monocytes % 7.5 %; Neutrophils % 43.6 %; Platelet Count 382 10^3/uL (130-400); RBC 4.74 10^6/uL (3.93-5.22); RDW 13.6 % (11.7-14.6); RDW-SD 46.2 fL; WBC 7.19 10^3/uL (4.4-10.8)
[2023-12-23 11:27] LABS: ALT 17 U/L (14-59); AST 13 U/L (15-37); Albumin 3.4 g/dL (3.4-5.0); Alkaline Phosphatase 71 U/L (46-116); BUN 8 mg/dL (7-18); Bilirubin, Total 0.56 mg/dL (0.2-1.0); CREATININE 0.7 mg/dL (0.55-1.02); Calcium 9.8 mg/dL (8.5-10.1); Chloride 106 mmol/L (98-107); Estimated GFR 98.34 (mL/min/1.73m2); Glucose 91 mg/dL (74-106); Potassium 3.9 mmol/L (3.5-5.1); Sodium 140 mmol/L (136-145); TSH 0.28 uIU/Ml (0.36-3.74); Total Protein 7.6 g/dL (6.4-8.2)
[2023-12-23 21:07] LABS: CEA 5.9 ng/mL (See Note)
== END 2023-12-23 01:32 | disposition home or self-care (01) ==
LOC: LBO 01:31
PROVIDERS: Visit Provider Internal Medicine Hematology & Oncology
DX: C18.9 Malignant neoplasm of colon, unspecified (principal); C78.7 Secondary malignant neoplasm of liver and intrahepatic bile duct
CPT/HCPCS: 36415; 80053; 82378; 84439; 84443; 85025

== ENCOUNTER 2024-01-13 08:53 | Outpatient (CLI) | payer MEDICAID, SELFPAY ==
[2024-01-13 09:21] LABS: Abs Immature Grans 0.02 10^3/uL (0.0-0.06); Absolute Eosinophil Count 0.27 10^3/uL (0.0-0.7); Absolute Lymphocyte Count 2.66 10^3/uL (1.2-3.4); Absolute Monocyte Count 0.67 10^3/uL (0.1-0.8); Absolute Neutrophil Count 3.89 10^3/uL (1.2-6.7); Basophils % 1.3 %; Eosinophils % 3.5 %; HGB 12.9 g/dL (11.2-15.7); Immature Grans % 0.3 %; MCH 29.6 pg (27.0-33.0); MCHC 32.3 % (32.0-36.0); MCV 92 fL (80-95); MPV 9.3 fL (8.0-11.0); Monocytes % 8.8 %; Neutrophils % 51.1 %; Platelet Count 377 10^3/uL (130-400); RBC 4.36 10^6/uL (3.93-5.22); RDW 13.6 % (11.7-14.6); RDW-SD 46.5 fL; WBC 7.61 10^3/uL (4.4-10.8)
[2024-01-13 09:45] LABS: ALT 15 U/L (14-59); AST 18 U/L (15-37); Albumin 3.1 g/dL (3.4-5.0); Alkaline Phosphatase 71 U/L (46-116); Anion Gap 8.5 mmol/L (3-11); BUN 14 mg/dL (7-18); Bilirubin, Total 0.13 mg/dL (0.2-1.0); CO2 25.5 mmol/L (21.0-32.0); CREATININE 0.7 mg/dL (0.55-1.02); Calcium 9.3 mg/dL (8.5-10.1); Chloride 104 mmol/L (98-107); Estimated GFR 98.34 (mL/min/1.73m2); Glucose 83 mg/dL (74-106); Potassium 4.1 mmol/L (3.5-5.1); Sodium 138 mmol/L (136-145); Total Protein 7.2 g/dL (6.4-8.2)
[2024-01-13 18:31] LABS: CEA 5.6 ng/mL (See Note)
== END 2024-01-13 08:54 | disposition home or self-care (01) ==
LOC: LBO 08:54
PROVIDERS: Visit Provider Internal Medicine Hematology & Oncology
DX: C18.9 Malignant neoplasm of colon, unspecified (principal); C78.7 Secondary malignant neoplasm of liver and intrahepatic bile duct
CPT/HCPCS: 36415; 80053; 82378; 84439; 84443; 85025

== ENCOUNTER 2024-02-03 13:09 | Outpatient (CLI) | payer MEDICAID, SELFPAY ==
[2024-02-03 12:40] LABS: Abs Immature Grans 0.02 10^3/uL (0.0-0.06); Absolute Basophil Count 0.07 10^3/uL (0.0-0.2); Absolute Eosinophil Count 0.14 10^3/uL (0.0-0.7); Absolute Lymphocyte Count 2.77 10^3/uL (1.2-3.4); Absolute Monocyte Count 0.63 10^3/uL (0.1-0.8); Absolute Neutrophil Count 4.46 10^3/uL (1.2-6.7); Basophils % 0.9 %; Eosinophils % 1.7 %; HCT 41.8 % (36.0-46.0); HGB 13.5 g/dL (11.2-15.7); Immature Grans % 0.2 %; Lymphocytes % 34.2 %; MCH 29.7 pg (27.0-33.0); MCHC 32.3 % (32.0-36.0); MCV 92 fL (80-95); MPV 8.9 fL (8.0-11.0); Monocytes % 7.8 %; Neutrophils % 55.2 %; Platelet Count 432 10^3/uL (130-400); RBC 4.55 10^6/uL (3.93-5.22); RDW 13.3 % (11.7-14.6); RDW-SD 45.1 fL; WBC 8.09 10^3/uL (4.4-10.8)
[2024-02-03 13:14] LABS: ALT 14 U/L (14-59); AST 9 U/L (15-37); Albumin 3.4 g/dL (3.4-5.0); Alkaline Phosphatase 87 U/L (46-116); BUN 13 mg/dL (7-18); Bilirubin, Total 0.21 mg/dL (0.2-1.0); CREATININE 0.8 mg/dL (0.55-1.02); Calcium 9.7 mg/dL (8.5-10.1); Chloride 104 mmol/L (98-107); Estimated GFR 83.78 (mL/min/1.73m2); FREE T4 0.74 ng/dL (0.76-1.46); Glucose 92 mg/dL (74-106); Potassium 4.4 mmol/L (3.5-5.1); Sodium 137 mmol/L (136-145); TSH 1.61 uIU/Ml (0.36-3.74); Total Protein 8.1 g/dL (6.4-8.2)
[2024-02-03 23:03] LABS: CEA 5.5 ng/mL (See Note)
== END 2024-02-03 13:10 | disposition home or self-care (01) ==
LOC: LBO 13:10
PROVIDERS: Visit Provider Internal Medicine Hematology & Oncology
DX: C18.9 Malignant neoplasm of colon, unspecified (principal); C78.7 Secondary malignant neoplasm of liver and intrahepatic bile duct
CPT/HCPCS: 36415; 80053; 82378; 84439; 84443; 85025

== ENCOUNTER 2024-02-24 13:03 | Outpatient (CLI) | payer MEDICAID, SELFPAY ==
[2024-02-24 12:04] LABS: Abs Immature Grans 0.02 10^3/uL (0.0-0.06); Absolute Basophil Count 0.09 10^3/uL (0.0-0.2); Absolute Eosinophil Count 0.17 10^3/uL (0.0-0.7); Absolute Lymphocyte Count 2.54 10^3/uL (1.2-3.4); Absolute Monocyte Count 0.45 10^3/uL (0.1-0.8); Absolute Neutrophil Count 3.89 10^3/uL (1.2-6.7); Basophils % 1.3 %; Eosinophils % 2.4 %; HGB 12.6 g/dL (11.2-15.7); Immature Grans % 0.3 %; Lymphocytes % 35.5 %; MCH 29.2 pg (27.0-33.0); MCHC 32.3 % (32.0-36.0); MCV 91 fL (80-95); MPV 8.6 fL (8.0-11.0); Monocytes % 6.3 %; Neutrophils % 54.2 %; Platelet Count 411 10^3/uL (130-400); RBC 4.31 10^6/uL (3.93-5.22); RDW 13.4 % (11.7-14.6); WBC 7.16 10^3/uL (4.4-10.8)
[2024-02-24 12:33] LABS: ALT 14 U/L (14-59); AST 12 U/L (15-37); Albumin 3.1 g/dL (3.4-5.0); Alkaline Phosphatase 81 U/L (46-116); Anion Gap 10.7 mmol/L (3-11); BUN 11 mg/dL (7-18); Bilirubin, Total 0.25 mg/dL (0.2-1.0); CO2 26.3 mmol/L (21.0-32.0); CREATININE 0.8 mg/dL (0.55-1.02); Calcium 9.4 mg/dL (8.5-10.1); Chloride 105 mmol/L (98-107); Estimated GFR 83.78 (mL/min/1.73m2); FREE T4 0.72 ng/dL (0.76-1.46); Glucose 126 mg/dL (74-106); Sodium 142 mmol/L (136-145); TSH 1.77 uIU/mL (0.36-3.74); Total Protein 7.8 g/dL (6.4-8.2)
[2024-02-24 18:06] LABS: CEA 5.2 ng/mL (See Note)
== END 2024-02-24 13:04 | disposition home or self-care (01) ==
LOC: LBO 13:03
PROVIDERS: Visit Provider Internal Medicine Hematology & Oncology
DX: C18.9 Malignant neoplasm of colon, unspecified (principal); C78.7 Secondary malignant neoplasm of liver and intrahepatic bile duct
CPT/HCPCS: 36415; 80053; 82378; 84439; 84443; 85025

== ENCOUNTER 2024-03-20 04:27 | Outpatient (CLI) | payer MEDICAID, SELFPAY ==
[2024-03-20 10:46] LABS: Abs Immature Grans 0.02 10^3/uL (0.0-0.06); Absolute Basophil Count 0.08 10^3/uL (0.0-0.2); Absolute Eosinophil Count 0.26 10^3/uL (0.0-0.7); Absolute Lymphocyte Count 2.83 10^3/uL (1.2-3.4); Absolute Monocyte Count 0.63 10^3/uL (0.1-0.8); Absolute Neutrophil Count 4.95 10^3/uL (1.2-6.7); Basophils % 0.9 %; HCT 39.6 % (36.0-46.0); HGB 12.8 g/dL (11.2-15.7); Immature Grans % 0.2 %; Lymphocytes % 32.3 %; MCH 29.3 pg (27.0-33.0); MCHC 32.3 % (32.0-36.0); MCV 91 fL (80-95); MPV 8.6 fL (8.0-11.0); Monocytes % 7.2 %; Neutrophils % 56.4 %; Platelet Count 474 10^3/uL (130-400); RBC 4.37 10^6/uL (3.93-5.22); RDW 13.7 % (11.7-14.6); RDW-SD 46.1 fL; WBC 8.77 10^3/uL (4.4-10.8)
[2024-03-20 11:10] LABS: ALT 14 U/L (14-59); AST 14 U/L (15-37); Albumin 3.2 g/dL (3.4-5.0); Alkaline Phosphatase 80 U/L (46-116); BUN 11 mg/dL (7-18); Bilirubin, Total 0.23 mg/dL (0.2-1.0); CREATININE 0.8 mg/dL (0.55-1.02); Calcium 9.6 mg/dL (8.5-10.1); Chloride 105 mmol/L (98-107); Estimated GFR 83.78 (mL/min/1.73m2); FREE T4 0.83 ng/dL (0.76-1.46); Glucose 91 mg/dL (74-106); Potassium 4.5 mmol/L (3.5-5.1); Sodium 141 mmol/L (136-145); TSH 2.33 uIU/mL (0.36-3.74); Total Protein 8.1 g/dL (6.4-8.2)
[2024-03-20 22:29] LABS: CEA 5.1 ng/mL (See Note)
== END 2024-03-20 04:28 | disposition home or self-care (01) ==
LOC: LBO 04:27
PROVIDERS: Visit Provider Internal Medicine Hematology & Oncology
DX: C18.9 Malignant neoplasm of colon, unspecified (principal); C78.7 Secondary malignant neoplasm of liver and intrahepatic bile duct
CPT/HCPCS: 36415; 80053; 82378; 84439; 84443; 85025

== ENCOUNTER 2024-05-03 12:26 | Outpatient (REF) | payer MEDICAID, SELFPAY ==
[2024-05-03 12:31] LABS: Abs Immature Grans 0.03 10^3/uL (0.0-0.06); Absolute Basophil Count 0.09 10^3/uL (0.0-0.2); Absolute Eosinophil Count 0.14 10^3/uL (0.0-0.7); Absolute Lymphocyte Count 2.28 10^3/uL (1.2-3.4); Absolute Monocyte Count 0.53 10^3/uL (0.1-0.8); Absolute Neutrophil Count 5.09 10^3/uL (1.2-6.7); Basophils % 1.1 %; Eosinophils % 1.7 %; HCT 38.8 % (36.0-46.0); HGB 12.6 g/dL (11.2-15.7); Immature Grans % 0.4 %; Lymphocytes % 27.9 %; MCHC 32.5 % (32.0-36.0); MCV 89 fL (80-95); MPV 8.9 fL (8.0-11.0); Monocytes % 6.5 %; Neutrophils % 62.4 %; Platelet Count 494 10^3/uL (130-400); RBC 4.35 10^6/uL (3.93-5.22); RDW 13.4 % (11.7-14.6); RDW-SD 44.1 fL; WBC 8.16 10^3/uL (4.4-10.8)
[2024-05-03 12:53] LABS: ALT 11 U/L (14-59); AST 13 U/L (15-37); Albumin 3.3 g/dL (3.4-5.0); Alkaline Phosphatase 78 U/L (46-116); BUN 11 mg/dL (7-18); Bilirubin, Total 0.18 mg/dL (0.2-1.0); CREATININE 0.7 mg/dL (0.55-1.02); Calcium 9.4 mg/dL (8.5-10.1); Chloride 105 mmol/L (98-107); Estimated GFR 98.34 (mL/min/1.73m2); FREE T4 0.83 ng/dL (0.76-1.46); Glucose 97 mg/dL (74-106); Potassium 4.6 mmol/L (3.5-5.1); Sodium 139 mmol/L (136-145); TSH 1.86 uIU/mL (0.36-3.74); Total Protein 8.1 g/dL (6.4-8.2)
[2024-05-03 21:24] LABS: CEA 5.4 ng/mL (See Note)
== END 2024-05-03 12:27 | disposition home or self-care (01) ==
LOC: LBN 12:26
PROVIDERS: Visit Provider Internal Medicine Hematology & Oncology
DX: C18.9 Malignant neoplasm of colon, unspecified (principal); C78.7 Secondary malignant neoplasm of liver and intrahepatic bile duct
CPT/HCPCS: 80053; 82378; 84439; 84443; 85025

== ENCOUNTER 2024-05-24 01:05 | Outpatient (CLI) | payer MEDICAID, SELFPAY ==
[2024-05-24 12:54] LABS: Abs Immature Grans 0.02 10^3/uL (0.0-0.06); Absolute Eosinophil Count 0.14 10^3/uL (0.0-0.7); Absolute Lymphocyte Count 2.44 10^3/uL (1.2-3.4); Absolute Monocyte Count 0.55 10^3/uL (0.1-0.8); Absolute Neutrophil Count 3.73 10^3/uL (1.2-6.7); Basophils % 1.4 %; HCT 38.3 % (36.0-46.0); HGB 12.3 g/dL (11.2-15.7); Immature Grans % 0.3 %; MCH 29.2 pg (27.0-33.0); MCHC 32.1 % (32.0-36.0); MCV 91 fL (80-95); MPV 9.1 fL (8.0-11.0); Monocytes % 7.9 %; Neutrophils % 53.4 %; Platelet Count 408 10^3/uL (130-400); RBC 4.21 10^6/uL (3.93-5.22); RDW 13.8 % (11.7-14.6); RDW-SD 45.8 fL; WBC 6.98 10^3/uL (4.4-10.8)
[2024-05-24 13:23] LABS: ALT 16 U/L (14-59); AST 13 U/L (15-37); Albumin 3.2 g/dL (3.4-5.0); Alkaline Phosphatase 77 U/L (46-116); Anion Gap 8.6 mmol/L (3-11); BUN 10 mg/dL (7-18); Bilirubin, Total 0.21 mg/dL (0.2-1.0); CO2 26.4 mmol/L (21.0-32.0); CREATININE 0.6 mg/dL (0.55-1.02); Calcium 9.4 mg/dL (8.5-10.1); Chloride 107 mmol/L (98-107); Estimated GFR 102.06 (mL/min/1.73m2); Glucose 90 mg/dL (74-106); Potassium 4.5 mmol/L (3.5-5.1); Sodium 142 mmol/L (136-145); TSH 0.87 uIU/mL (0.36-3.74); Total Protein 7.2 g/dL (6.4-8.2)
[2024-05-25 00:09] LABS: CEA 4.8 ng/mL (See Note)
== END 2024-05-24 01:06 | disposition home or self-care (01) ==
PROVIDERS: Visit Provider Internal Medicine Hematology & Oncology
DX: C18.9 Malignant neoplasm of colon, unspecified (principal); C78.7 Secondary malignant neoplasm of liver and intrahepatic bile duct
CPT/HCPCS: 36415; 80053; 82378; 84439; 84443; 85025

== ENCOUNTER 2024-06-14 01:54 | Outpatient (CLI) | payer MEDICAID, SELFPAY ==
[2024-06-14 08:19] LABS: Abs Immature Grans 0.03 10^3/uL (0.0-0.06); Absolute Basophil Count 0.06 10^3/uL (0.0-0.2); Absolute Lymphocyte Count 2.09 10^3/uL (1.2-3.4); Absolute Monocyte Count 0.61 10^3/uL (0.1-0.8); Absolute Neutrophil Count 4.87 10^3/uL (1.2-6.7); Basophils % 0.8 %; Eosinophils % 1.3 %; HCT 37.7 % (36.0-46.0); HGB 11.9 g/dL (11.2-15.7); Immature Grans % 0.4 %; Lymphocytes % 26.9 %; MCH 28.7 pg (27.0-33.0); MCHC 31.6 % (32.0-36.0); MCV 91 fL (80-95); MPV 8.9 fL (8.0-11.0); Monocytes % 7.9 %; Neutrophils % 62.7 %; Platelet Count 438 10^3/uL (130-400); RBC 4.14 10^6/uL (3.93-5.22); RDW 13.9 % (11.7-14.6); RDW-SD 46.8 fL; WBC 7.76 10^3/uL (4.4-10.8)
[2024-06-14 08:49] LABS: ALT 16 U/L (14-59); AST 11 U/L (15-37); Albumin 3.1 g/dL (3.4-5.0); Alkaline Phosphatase 67 U/L (46-116); Anion Gap 6.5 mmol/L (3-11); BUN 14 mg/dL (7-18); Bilirubin, Total 0.16 mg/dL (0.2-1.0); CO2 27.5 mmol/L (21.0-32.0); CREATININE 0.7 mg/dL (0.55-1.02); Calcium 9.4 mg/dL (8.5-10.1); Chloride 109 mmol/L (98-107); Estimated GFR 98.34 (mL/min/1.73m2); FREE T4 0.79 ng/dL (0.76-1.46); Glucose 111 mg/dL (74-106); Potassium 4.4 mmol/L (3.5-5.1); Sodium 143 mmol/L (136-145); TSH 1.69 uIU/mL (0.36-3.74); Total Protein 7.5 g/dL (6.4-8.2)
[2024-06-14 23:30] LABS: CEA 4.9 ng/mL (See Note)
== END 2024-06-14 01:55 | disposition home or self-care (01) ==
PROVIDERS: Visit Provider Internal Medicine Hematology & Oncology
DX: C18.9 Malignant neoplasm of colon, unspecified (principal); C78.7 Secondary malignant neoplasm of liver and intrahepatic bile duct
CPT/HCPCS: 36415; 80053; 82378; 84439; 84443; 85025

== ENCOUNTER 2024-07-05 03:01 | Outpatient (CLI) | payer MEDICAID, SELFPAY ==
[2024-07-05 08:35] LABS: Abs Immature Grans 0.01 10^3/uL (0.0-0.06); Absolute Basophil Count 0.07 10^3/uL (0.0-0.2); Absolute Eosinophil Count 0.19 10^3/uL (0.0-0.7); Absolute Lymphocyte Count 2.63 10^3/uL (1.2-3.4); Absolute Monocyte Count 0.69 10^3/uL (0.1-0.8); Eosinophils % 2.8 %; HGB 11.6 g/dL (11.2-15.7); Immature Grans % 0.1 %; Lymphocytes % 38.7 %; MCH 28.3 pg (27.0-33.0); MCHC 31.4 % (32.0-36.0); MCV 90 fL (80-95); MPV 8.9 fL (8.0-11.0); Monocytes % 10.2 %; Neutrophils % 47.2 %; Platelet Count 444 10^3/uL (130-400); RDW 13.9 % (11.7-14.6); WBC 6.79 10^3/uL (4.4-10.8)
[2024-07-05 09:01] LABS: ALT 16 U/L (14-59); AST 11 U/L (15-37); Alkaline Phosphatase 69 U/L (46-116); Anion Gap 10.2 mmol/L (3-11); BUN 17 mg/dL (7-18); Bilirubin, Total 0.15 mg/dL (0.2-1.0); CO2 26.8 mmol/L (21.0-32.0); CREATININE 0.6 mg/dL (0.55-1.02); Calcium 9.2 mg/dL (8.5-10.1); Chloride 106 mmol/L (98-107); Estimated GFR 102.06 (mL/min/1.73m2); FREE T4 0.85 ng/dL (0.76-1.46); Glucose 91 mg/dL (74-106); Potassium 4.4 mmol/L (3.5-5.1); Sodium 143 mmol/L (136-145); Total Protein 7.5 g/dL (6.4-8.2)
[2024-07-05 22:03] LABS: CEA 4.7 ng/mL (See Note)
== END 2024-07-05 03:02 | disposition home or self-care (01) ==
PROVIDERS: Visit Provider Internal Medicine Hematology & Oncology
DX: C18.9 Malignant neoplasm of colon, unspecified (principal); C78.7 Secondary malignant neoplasm of liver and intrahepatic bile duct
CPT/HCPCS: 36415; 80053; 82378; 84439; 84443; 85025

== ENCOUNTER 2024-07-26 01:36 | Outpatient (CLI) | payer MEDICAID, SELFPAY ==
[2024-07-26 12:28] LABS: Abs Immature Grans 0.04 10^3/uL (0.0-0.06); Absolute Basophil Count 0.07 10^3/uL (0.0-0.2); Absolute Eosinophil Count 0.12 10^3/uL (0.0-0.7); Absolute Lymphocyte Count 2.15 10^3/uL (1.2-3.4); Absolute Monocyte Count 0.39 10^3/uL (0.1-0.8); Absolute Neutrophil Count 4.49 10^3/uL (1.2-6.7); Eosinophils % 1.7 %; HGB 11.9 g/dL (11.2-15.7); Immature Grans % 0.6 %; Lymphocytes % 29.6 %; MCH 27.7 pg (27.0-33.0); MCHC 31.3 % (32.0-36.0); MCV 89 fL (80-95); MPV 8.6 fL (8.0-11.0); Monocytes % 5.4 %; Neutrophils % 61.7 %; Platelet Count 460 10^3/uL (130-400); RBC 4.29 10^6/uL (3.93-5.22); RDW 13.7 % (11.7-14.6); RDW-SD 44.8 fL; WBC 7.26 10^3/uL (4.4-10.8)
[2024-07-26 12:54] LABS: ALT 15 U/L (14-59); AST 14 U/L (15-37); Albumin 3.1 g/dL (3.4-5.0); Alkaline Phosphatase 78 U/L (46-116); Anion Gap 7.2 mmol/L (3-11); BUN 10 mg/dL (7-18); Bilirubin, Total 0.3 mg/dL (0.2-1.0); CO2 27.8 mmol/L (21.0-32.0); CREATININE 0.6 mg/dL (0.55-1.02); Calcium 9.4 mg/dL (8.5-10.1); Chloride 104 mmol/L (98-107); Estimated GFR 102.06 (mL/min/1.73m2); Glucose 113 mg/dL (74-106); Potassium 4.6 mmol/L (3.5-5.1); Sodium 139 mmol/L (136-145); TSH 1.47 uIU/mL (0.36-3.74); Total Protein 7.8 g/dL (6.4-8.2)
[2024-07-26 23:03] LABS: CEA 5.2 ng/mL (See Note)
== END 2024-07-26 01:37 | disposition home or self-care (01) ==
PROVIDERS: Visit Provider Internal Medicine Hematology & Oncology
DX: C18.9 Malignant neoplasm of colon, unspecified (principal); C78.7 Secondary malignant neoplasm of liver and intrahepatic bile duct
CPT/HCPCS: 36415; 80053; 82378; 84443; 85025

== ENCOUNTER 2024-08-16 02:17 | Outpatient (CLI) | payer MEDICAID, SELFPAY ==
[2024-08-16 12:43] LABS: Abs Immature Grans 0.04 10^3/uL (0.0-0.06); Absolute Basophil Count 0.07 10^3/uL (0.0-0.2); Absolute Monocyte Count 0.42 10^3/uL (0.1-0.8); Absolute Neutrophil Count 6.15 10^3/uL (1.2-6.7); Basophils % 0.8 %; Eosinophils % 1.1 %; HCT 36.4 % (36.0-46.0); HGB 11.3 g/dL (11.2-15.7); Immature Grans % 0.5 %; Lymphocytes % 23.6 %; MCH 27.6 pg (27.0-33.0); MCV 89 fL (80-95); MPV 8.4 fL (8.0-11.0); Monocytes % 4.7 %; Neutrophils % 69.3 %; Platelet Count 447 10^3/uL (130-400); RDW 14.2 % (11.7-14.6); WBC 8.88 10^3/uL (4.4-10.8)
[2024-08-16 13:49] LABS: ALT 12 U/L (14-59); AST 15 U/L (15-37); Albumin 3.2 g/dL (3.4-5.0); Alkaline Phosphatase 73 U/L (46-116); Anion Gap 7.4 mmol/L (3-11); BUN 9 mg/dL (7-18); Bilirubin, Total 0.2 mg/dL (0.2-1.0); CO2 27.6 mmol/L (21.0-32.0); CREATININE 0.8 mg/dL (0.55-1.02); Calcium 9.3 mg/dL (8.5-10.1); Chloride 104 mmol/L (98-107); Estimated GFR 83.78 (mL/min/1.73m2); FREE T4 0.86 ng/dL (0.76-1.46); Glucose 121 mg/dL (74-106); Potassium 4.2 mmol/L (3.5-5.1); Sodium 139 mmol/L (136-145); TSH 1.95 uIU/mL (0.36-3.74); Total Protein 7.8 g/dL (6.4-8.2)
[2024-08-17 10:03] LABS: CEA 4.6 ng/mL (See Note)
== END 2024-08-16 02:18 | disposition home or self-care (01) ==
LOC: LBO 02:18
PROVIDERS: Visit Provider Internal Medicine Hematology & Oncology
DX: C18.9 Malignant neoplasm of colon, unspecified (principal); C78.7 Secondary malignant neoplasm of liver and intrahepatic bile duct
CPT/HCPCS: 36415; 80053; 82378; 84439; 84443; 85025

== ENCOUNTER 2024-09-06 03:45 | Outpatient (CLI) | payer MEDICAID, SELFPAY ==
[2024-09-06 10:35] LABS: Abs Immature Grans 0.03 10^3/uL (0.0-0.06); Absolute Basophil Count 0.08 10^3/uL (0.0-0.2); Absolute Eosinophil Count 0.09 10^3/uL (0.0-0.7); Absolute Lymphocyte Count 1.78 10^3/uL (1.2-3.4); Absolute Monocyte Count 0.48 10^3/uL (0.1-0.8); Absolute Neutrophil Count 5.27 10^3/uL (1.2-6.7); Eosinophils % 1.2 %; HCT 35.1 % (36.0-46.0); HGB 11.1 g/dL (11.2-15.7); Immature Grans % 0.4 %; MCH 27.8 pg (27.0-33.0); MCHC 31.6 % (32.0-36.0); MCV 88 fL (80-95); MPV 8.5 fL (8.0-11.0); Monocytes % 6.2 %; Neutrophils % 68.2 %; Platelet Count 475 10^3/uL (130-400); RDW 14.6 % (11.7-14.6); RDW-SD 46.8 fL; WBC 7.73 10^3/uL (4.4-10.8)
[2024-09-06 10:59] LABS: ALT 12 U/L (14-59); AST 14 U/L (15-37); Alkaline Phosphatase 68 U/L (46-116); Anion Gap 12.2 mmol/L (3-11); BUN 12 mg/dL (7-18); Bilirubin, Total 0.3 mg/dL (0.2-1.0); CO2 25.8 mmol/L (21.0-32.0); CREATININE 0.7 mg/dL (0.55-1.02); Calcium 9.6 mg/dL (8.5-10.1); Chloride 103 mmol/L (98-107); Estimated GFR 97.72 (mL/min/1.73m2); FREE T4 0.93 ng/dL (0.76-1.46); Glucose 131 mg/dL (74-106); Potassium 4.2 mmol/L (3.5-5.1); Sodium 141 mmol/L (136-145); TSH 1.63 uIU/mL (0.36-3.74); Total Protein 7.6 g/dL (6.4-8.2)
[2024-09-06 19:25] LABS: CEA 4.7 ng/mL (See Note)
== END 2024-09-06 03:46 | disposition home or self-care (01) ==
LOC: LBO 03:46
PROVIDERS: Visit Provider Internal Medicine Hematology & Oncology
DX: C18.9 Malignant neoplasm of colon, unspecified (principal); C78.7 Secondary malignant neoplasm of liver and intrahepatic bile duct
CPT/HCPCS: 36415; 80053; 82378; 84439; 84443; 85025

== ENCOUNTER 2024-09-27 03:05 | Outpatient (CLI) | payer MEDICAID, SELFPAY ==
[2024-09-27 10:45] LABS: Abs Immature Grans 0.03 10^3/uL (0.0-0.06); Absolute Basophil Count 0.09 10^3/uL (0.0-0.2); Absolute Eosinophil Count 0.09 10^3/uL (0.0-0.7); Absolute Lymphocyte Count 1.98 10^3/uL (1.2-3.4); Absolute Monocyte Count 0.64 10^3/uL (0.1-0.8); Absolute Neutrophil Count 6.15 10^3/uL (1.2-6.7); HCT 35.1 % (36.0-46.0); HGB 11.1 g/dL (11.2-15.7); Immature Grans % 0.3 %; MCH 27.3 pg (27.0-33.0); MCHC 31.6 % (32.0-36.0); MCV 87 fL (80-95); MPV 8.5 fL (8.0-11.0); Monocytes % 7.1 %; Neutrophils % 68.6 %; Platelet Count 501 10^3/uL (130-400); RBC 4.06 10^6/uL (3.93-5.22); RDW 15.1 % (11.7-14.6); RDW-SD 48.2 fL; WBC 8.98 10^3/uL (4.4-10.8)
[2024-09-27 11:11] LABS: ALT 10 U/L (14-59); AST 12 U/L (15-37); Alkaline Phosphatase 71 U/L (46-116); Anion Gap 10.5 mmol/L (3-11); BUN 11 mg/dL (7-18); Bilirubin, Total 0.2 mg/dL (0.2-1.0); CO2 24.5 mmol/L (21.0-32.0); CREATININE 0.7 mg/dL (0.55-1.02); Calcium 9.4 mg/dL (8.5-10.1); Chloride 105 mmol/L (98-107); Estimated GFR 97.72 (mL/min/1.73m2); FREE T4 0.83 ng/dL (0.76-1.46); Glucose 110 mg/dL (74-106); Potassium 4.3 mmol/L (3.5-5.1); Sodium 140 mmol/L (136-145); TSH 1.38 uIU/mL (0.36-3.74); Total Protein 7.7 g/dL (6.4-8.2)
[2024-09-27 18:17] LABS: CEA 4.7 ng/mL (See Note)
== END 2024-09-27 03:06 | disposition home or self-care (01) ==
LOC: LBO 03:05
PROVIDERS: Visit Provider Internal Medicine Hematology & Oncology
DX: C18.9 Malignant neoplasm of colon, unspecified (principal); C78.7 Secondary malignant neoplasm of liver and intrahepatic bile duct
CPT/HCPCS: 36415; 80053; 82378; 84439; 84443; 85025

== ENCOUNTER 2024-10-18 01:55 | Outpatient (CLI) | payer MEDICAID, SELFPAY ==
[2024-10-18 08:24] LABS: Abs Immature Grans 0.02 10^3/uL (0.0-0.06); Absolute Basophil Count 0.09 10^3/uL (0.0-0.2); Absolute Eosinophil Count 0.15 10^3/uL (0.0-0.7); Absolute Lymphocyte Count 2.55 10^3/uL (1.2-3.4); Absolute Monocyte Count 0.69 10^3/uL (0.1-0.8); Absolute Neutrophil Count 4.52 10^3/uL (1.2-6.7); Basophils % 1.1 %; Eosinophils % 1.9 %; HGB 10.9 g/dL (11.2-15.7); Immature Grans % 0.2 %; Lymphocytes % 31.8 %; MCHC 31.1 % (32.0-36.0); MCV 87 fL (80-95); MPV 8.5 fL (8.0-11.0); Monocytes % 8.6 %; Neutrophils % 56.4 %; Platelet Count 580 10^3/uL (130-400); RBC 4.03 10^6/uL (3.93-5.22); RDW 15.3 % (11.7-14.6); WBC 8.02 10^3/uL (4.4-10.8)
[2024-10-18 08:37] LABS: ALT 15 U/L (14-59); AST 11 U/L (15-37); Albumin 3.1 g/dL (3.4-5.0); Alkaline Phosphatase 74 U/L (46-116); Anion Gap 9.7 mmol/L (3-11); BUN 11 mg/dL (7-18); Bilirubin, Total 0.2 mg/dL (0.2-1.0); CO2 25.3 mmol/L (21.0-32.0); CREATININE 0.8 mg/dL (0.55-1.02); Calcium 9.3 mg/dL (8.5-10.1); Chloride 106 mmol/L (98-107); Estimated GFR 83.26 (mL/min/1.73m2); FREE T4 0.87 ng/dL (0.76-1.46); Glucose 97 mg/dL (74-106); Potassium 4.5 mmol/L (3.5-5.1); Sodium 141 mmol/L (136-145); TSH 2.35 uIU/mL (0.36-3.74)
[2024-10-18 19:21] LABS: CEA 4.7 ng/mL (See Note)
== END 2024-10-18 01:56 | disposition home or self-care (01) ==
LOC: LBO 01:55
PROVIDERS: Visit Provider Internal Medicine Hematology & Oncology
DX: C18.9 Malignant neoplasm of colon, unspecified (principal); C78.7 Secondary malignant neoplasm of liver and intrahepatic bile duct
CPT/HCPCS: 36415; 80053; 82378; 84439; 84443; 85025

== ENCOUNTER 2024-11-08 02:36 | Outpatient (CLI) | payer MEDICAID, SELFPAY ==
[2024-11-08 12:21] LABS: Abs Immature Grans 0.09 10^3/uL (0.0-0.06); HCT 35.0 % (36.0-46.0); HGB 11.0 g/dL (11.2-15.7); Immature Grans % 0.7 %; MCH 26.7 pg (27.0-33.0); MCHC 31.4 % (32.0-36.0); MCV 85 fL (80-95); MPV 8.6 fL (8.0-11.0); Platelet Count 517 10^3/uL (130-400); RBC 4.12 10^6/uL (3.93-5.22); RDW 15.8 % (11.7-14.6); RDW-SD 48.5 fL; WBC 13.73 10^3/uL (4.4-10.8)
[2024-11-08 12:51] LABS: ALT 22 U/L (14-59); AST 16 U/L (15-37); Albumin 3.4 g/dL (3.4-5.0); Alkaline Phosphatase 60 U/L (46-116); Anion Gap 11.7 mmol/L (3-11); BUN 16 mg/dL (7-18); Bilirubin, Total 0.2 mg/dL (0.2-1.0); CO2 24.3 mmol/L (21.0-32.0); Calcium 9.4 mg/dL (8.5-10.1); Chloride 105 mmol/L (98-107); Estimated GFR 97.72 (mL/min/1.73m2); Glucose 96 mg/dL (74-106); Potassium 4.6 mmol/L (3.5-5.1); Sodium 141 mmol/L (136-145); TSH 0.78 uIU/mL (0.36-3.74); Total Protein 7.7 g/dL (6.4-8.2)
[2024-11-08 22:13] LABS: CEA 4.6 ng/mL (See Note)
== END 2024-11-08 02:37 | disposition home or self-care (01) ==
LOC: LBO 02:36
PROVIDERS: Visit Provider Internal Medicine Hematology & Oncology
DX: C18.9 Malignant neoplasm of colon, unspecified (principal); C78.7 Secondary malignant neoplasm of liver and intrahepatic bile duct
CPT/HCPCS: 36415; 80053; 82378; 84439; 84443; 85025

== ENCOUNTER 2024-11-27 03:10 | Outpatient (CLI) | payer MEDICAID, SELFPAY ==
[2024-11-27 12:54] LABS: Abs Immature Grans 0.03 10^3/uL (0.0-0.06); HCT 36.1 % (36.0-46.0); HGB 11.5 g/dL (11.2-15.7); Immature Grans % 0.3 %; MCH 26.9 pg (27.0-33.0); MCHC 31.9 % (32.0-36.0); MCV 85 fL (80-95); MPV 8.8 fL (8.0-11.0); Platelet Count 441 10^3/uL (130-400); RBC 4.27 10^6/uL (3.93-5.22); RDW 15.7 % (11.7-14.6); RDW-SD 47.9 fL; WBC 9.80 10^3/uL (4.4-10.8)
[2024-11-27 13:21] LABS: ALT 22 U/L (14-59); AST 14 U/L (15-37); Albumin 3.6 g/dL (3.4-5.0); Alkaline Phosphatase 55 U/L (46-116); Anion Gap 10.6 mmol/L (3-11); BUN 9 mg/dL (7-18); Bilirubin, Total 0.2 mg/dL (0.2-1.0); CO2 25.4 mmol/L (21.0-32.0); Calcium 9.5 mg/dL (8.5-10.1); Chloride 101 mmol/L (98-107); Estimated GFR 101.42 (mL/min/1.73m2); Glucose 127 mg/dL (74-106); Potassium 4.2 mmol/L (3.5-5.1); Sodium 137 mmol/L (136-145); TSH 0.39 uIU/mL (0.36-3.74); Total Protein 7.8 g/dL (6.4-8.2)
== END 2024-11-27 03:11 | disposition home or self-care (01) ==
LOC: LBO 03:10
PROVIDERS: Visit Provider Internal Medicine Hematology & Oncology
DX: C18.9 Malignant neoplasm of colon, unspecified (principal); C78.7 Secondary malignant neoplasm of liver and intrahepatic bile duct
CPT/HCPCS: 36415; 80053; 84439; 84443; 85025

== ENCOUNTER 2024-12-20 03:49 | Outpatient (CLI) | payer MEDICAID, SELFPAY ==
[2024-12-20 12:16] LABS: Abs Immature Grans 0.04 10^3/uL (0.0-0.06); HCT 35.9 % (36.0-46.0); HGB 11.4 g/dL (11.2-15.7); Immature Grans % 0.4 %; MCH 26.5 pg (27.0-33.0); MCHC 31.8 % (32.0-36.0); MCV 84 fL (80-95); MPV 8.8 fL (8.0-11.0); Platelet Count 427 10^3/uL (130-400); RBC 4.30 10^6/uL (3.93-5.22); RDW 16.1 % (11.7-14.6); RDW-SD 48.9 fL; WBC 9.46 10^3/uL (4.4-10.8)
[2024-12-20 12:36] LABS: ALT 23 U/L (14-59); Albumin 3.7 g/dL (3.4-5.0); Alkaline Phosphatase 49 U/L (46-116); Anion Gap 10.8 mmol/L (3-11); BUN 12 mg/dL (7-18); Bilirubin, Total 0.2 mg/dL (0.2-1.0); CO2 27.2 mmol/L (21.0-32.0); Calcium 9.7 mg/dL (8.5-10.1); Chloride 103 mmol/L (98-107); Estimated GFR 72.28 (mL/min/1.73m2); Glucose 158 mg/dL (74-106); Potassium 4.3 mmol/L (3.5-5.1); Sodium 141 mmol/L (136-145); Total Protein 7.6 g/dL (6.4-8.2)
[2024-12-20 12:56] LABS: AST 13 U/L (15-37); TSH 0.65 uIU/mL (0.36-3.74)
[2024-12-20 23:15] LABS: CEA 4.8 ng/mL (See Note)
== END 2024-12-20 03:50 | disposition home or self-care (01) ==
LOC: LBO 03:49
PROVIDERS: Visit Provider Internal Medicine Hematology & Oncology
DX: C18.9 Malignant neoplasm of colon, unspecified (principal); C78.7 Secondary malignant neoplasm of liver and intrahepatic bile duct
CPT/HCPCS: 36415; 80053; 82378; 84439; 84443; 85025

== ENCOUNTER 2025-01-10 12:26 | Outpatient (CLI) | payer MEDICAID, SELFPAY ==
[2025-01-10 13:30] LABS: Abs Immature Grans 0.04 10^3/uL (0.0-0.06); HCT 38.1 % (36.0-46.0); HGB 12.0 g/dL (11.2-15.7); Immature Grans % 0.4 %; MCH 26.5 pg (27.0-33.0); MCHC 31.5 % (32.0-36.0); MCV 84 fL (80-95); MPV 8.9 fL (8.0-11.0); Platelet Count 413 10^3/uL (130-400); RBC 4.53 10^6/uL (3.93-5.22); RDW 16.3 % (11.7-14.6); RDW-SD 50.5 fL; WBC 9.34 10^3/uL (4.4-10.8)
[2025-01-10 13:53] LABS: ALT 18 U/L (14-59); AST 12 U/L (15-37); Albumin 3.8 g/dL (3.4-5.0); Alkaline Phosphatase 47 U/L (46-116); Anion Gap 9.3 mmol/L (3-11); BUN 14 mg/dL (7-18); Bilirubin, Total 0.2 mg/dL (0.2-1.0); CO2 26.7 mmol/L (21.0-32.0); Calcium 9.5 mg/dL (8.5-10.1); Chloride 103 mmol/L (98-107); Estimated GFR 83.26 (mL/min/1.73m2); Glucose 107 mg/dL (74-106); Potassium 4.4 mmol/L (3.5-5.1); Sodium 139 mmol/L (136-145); TSH 0.61 uIU/mL (0.36-3.74); Total Protein 7.7 g/dL (6.4-8.2)
[2025-01-10 22:14] LABS: CEA 4.7 ng/mL (See Note)
== END 2025-01-10 12:27 | disposition home or self-care (01) ==
LOC: LBO 12:27
PROVIDERS: Visit Provider Internal Medicine Hematology & Oncology
DX: C18.9 Malignant neoplasm of colon, unspecified (principal); C78.7 Secondary malignant neoplasm of liver and intrahepatic bile duct
CPT/HCPCS: 36415; 80053; 82378; 84439; 84443; 85025

== ENCOUNTER 2025-01-31 02:09 | Outpatient (CLI) | payer MEDICAID, SELFPAY ==
[2025-01-31 13:15] LABS: Abs Immature Grans 0.05 10^3/uL (0.0-0.06); HCT 38.3 % (36.0-46.0); HGB 12.1 g/dL (11.2-15.7); Immature Grans % 0.4 %; MCH 26.6 pg (27.0-33.0); MCHC 31.6 % (32.0-36.0); MCV 84 fL (80-95); MPV 8.9 fL (8.0-11.0); Platelet Count 404 10^3/uL (130-400); RBC 4.55 10^6/uL (3.93-5.22); RDW 17.1 % (11.7-14.6); RDW-SD 53.1 fL; WBC 12.18 10^3/uL (4.4-10.8)
[2025-01-31 13:51] LABS: ALT 22 U/L (14-59); AST 17 U/L (15-37); Albumin 3.7 g/dL (3.4-5.0); Alkaline Phosphatase 45 U/L (46-116); Anion Gap 9.1 mmol/L (3-11); BUN 7 mg/dL (7-18); Bilirubin, Total 0.3 mg/dL (0.2-1.0); CO2 27.9 mmol/L (21.0-32.0); Calcium 9.2 mg/dL (8.5-10.1); Chloride 103 mmol/L (98-107); Estimated GFR 72.28 (mL/min/1.73m2); Glucose 121 mg/dL (74-106); Potassium 3.9 mmol/L (3.5-5.1); Sodium 140 mmol/L (136-145); TSH 0.77 uIU/mL (0.36-3.74); Total Protein 7.5 g/dL (6.4-8.2)
[2025-01-31 22:23] LABS: CEA 4.2 ng/mL (See Note)
== END 2025-01-31 02:10 | disposition home or self-care (01) ==
LOC: LBO 02:09
PROVIDERS: Visit Provider Internal Medicine Hematology & Oncology
DX: C18.9 Malignant neoplasm of colon, unspecified (principal); C78.7 Secondary malignant neoplasm of liver and intrahepatic bile duct
CPT/HCPCS: 36415; 80053; 82378; 84439; 84443; 85025

== ENCOUNTER 2025-02-21 05:20 | Outpatient (CLI) | payer MEDICAID, SELFPAY ==
[2025-02-21 13:09] LABS: Abs Immature Grans 0.05 10^3/uL (0.0-0.06); HCT 38.6 % (36.0-46.0); HGB 12.2 g/dL (11.2-15.7); Immature Grans % 0.4 %; MCH 26.7 pg (27.0-33.0); MCHC 31.6 % (32.0-36.0); MCV 85 fL (80-95); MPV 8.9 fL (8.0-11.0); Platelet Count 381 10^3/uL (130-400); RBC 4.57 10^6/uL (3.93-5.22); RDW 17.4 % (11.7-14.6); RDW-SD 53.8 fL; WBC 11.29 10^3/uL (4.4-10.8)
[2025-02-21 13:32] LABS: ALT 50 U/L (14-59); AST 21 U/L (15-37); Albumin 3.5 g/dL (3.4-5.0); Alkaline Phosphatase 47 U/L (46-116); Anion Gap 9.6 mmol/L (3-11); BUN 9 mg/dL (7-18); Bilirubin, Total 0.3 mg/dL (0.2-1.0); CO2 27.4 mmol/L (21.0-32.0); Calcium 9.3 mg/dL (8.5-10.1); Chloride 104 mmol/L (98-107); Estimated GFR 97.72 (mL/min/1.73m2); Glucose 92 mg/dL (74-106); Potassium 4.1 mmol/L (3.5-5.1); Sodium 141 mmol/L (136-145); TSH 1.32 uIU/mL (0.36-3.74); Total Protein 7.3 g/dL (6.4-8.2)
[2025-02-21 22:37] LABS: CEA 4.7 ng/mL (See Note)
== END 2025-02-21 05:21 | disposition home or self-care (01) ==
LOC: LBO 05:21
PROVIDERS: Visit Provider Internal Medicine Hematology & Oncology
DX: C18.9 Malignant neoplasm of colon, unspecified (principal); C78.7 Secondary malignant neoplasm of liver and intrahepatic bile duct
CPT/HCPCS: 36415; 80053; 82378; 84439; 84443; 85025

== ENCOUNTER 2025-03-14 09:16 | Outpatient (CLI) | payer MEDICAID, SELFPAY ==
[2025-03-14 12:38] LABS: Abs Immature Grans 0.03 10^3/uL (0.0-0.06); HCT 38.2 % (36.0-46.0); HGB 12.1 g/dL (11.2-15.7); Immature Grans % 0.3 %; MCH 27.3 pg (27.0-33.0); MCHC 31.7 % (32.0-36.0); MCV 86 fL (80-95); MPV 9.1 fL (8.0-11.0); Platelet Count 389 10^3/uL (130-400); RBC 4.43 10^6/uL (3.93-5.22); RDW 18.1 % (11.7-14.6); RDW-SD 57.1 fL; WBC 8.63 10^3/uL (4.4-10.8)
[2025-03-14 12:52] LABS: ALT 9 U/L (14-59); AST 18 U/L (15-37); Albumin 3.5 g/dL (3.4-5.0); Alkaline Phosphatase 48 U/L (46-116); Anion Gap 8.9 mmol/L (3-11); BUN 8 mg/dL (7-18); Bilirubin, Total 0.3 mg/dL (0.2-1.0); CO2 28.1 mmol/L (21.0-32.0); Calcium 9.3 mg/dL (8.5-10.1); Chloride 106 mmol/L (98-107); Glucose 107 mg/dL (74-106); Potassium 3.6 mmol/L (3.5-5.1); Sodium 143 mmol/L (136-145); TSH 1.94 uIU/mL (0.36-3.74); Total Protein 7.2 g/dL (6.4-8.2)
[2025-03-14 22:43] LABS: CEA 5.0 ng/mL (See Note)
== END 2025-03-14 09:17 | disposition home or self-care (01) ==
LOC: LBO 09:16
PROVIDERS: Visit Provider Internal Medicine Hematology & Oncology
DX: C18.9 Malignant neoplasm of colon, unspecified (principal); C78.7 Secondary malignant neoplasm of liver and intrahepatic bile duct
CPT/HCPCS: 36415; 80053; 82378; 84439; 84443; 85025

== ENCOUNTER 2025-04-02 01:43 | Outpatient (CLI) | payer MEDICAID, SELFPAY ==
[2025-04-02 12:46] LABS: Abs Immature Grans 0.04 10^3/uL (0.0-0.06); HCT 38.3 % (36.0-46.0); HGB 12.4 g/dL (11.2-15.7); Immature Grans % 0.4 %; MCH 28.1 pg (27.0-33.0); MCHC 32.4 % (32.0-36.0); MCV 87 fL (80-95); MPV 8.9 fL (8.0-11.0); Platelet Count 443 10^3/uL (130-400); RBC 4.41 10^6/uL (3.93-5.22); RDW 17.2 % (11.7-14.6); RDW-SD 54.8 fL; WBC 10.09 10^3/uL (4.4-10.8)
[2025-04-02 13:47] LABS: TSH 0.92 uIU/mL (0.55-4.78)
[2025-04-02 13:48] LABS: ALT 11 U/L (10-49); AST 15 U/L (<34); Albumin 4.3 g/dL (3.2-5.0); Alkaline Phosphatase 46 U/L (46-116); Anion Gap 8.9 mmol/L (3-11); BUN 10 mg/dL (9-23); Bilirubin, Total 0.20 mg/dL (0.2-1.2); CO2 24.1 mmol/L (20.0-31.0); Calcium 9.4 mg/dL (8.3-10.6); Chloride 106 mmol/L (98-107); Glucose 102 mg/dL (74-106); Potassium 4.1 mmol/L (3.5-5.1); Sodium 139 mmol/L (136-145); Total Protein 7.5 g/dL (5.7-8.2)
[2025-04-02 23:13] LABS: CEA 5.3 ng/mL (See Note)
== END 2025-04-02 01:44 | disposition home or self-care (01) ==
LOC: LBO 01:44
PROVIDERS: Visit Provider Internal Medicine Hematology & Oncology
DX: C18.9 Malignant neoplasm of colon, unspecified (principal); C78.7 Secondary malignant neoplasm of liver and intrahepatic bile duct
CPT/HCPCS: 36415; 80053; 82378; 84439; 84443; 85025

== ENCOUNTER 2025-04-25 08:21 | Outpatient (CLI) | payer MEDICAID, SELFPAY ==
[2025-04-25 14:29] LABS: HCT 41.1 % (36.0-46.0); HGB 13.4 g/dL (11.2-15.7); MCV 88 fL (80-95); RBC 4.65 10^6/uL (3.93-5.22); WBC 11.05 10^3/uL (4.4-10.8)
[2025-04-25 14:30] LABS: Immature Grans % 0.5 %; MCH 28.8 pg (27.0-33.0); MCHC 32.6 % (32.0-36.0); MPV 8.8 fL (8.0-11.0); Platelet Count 427 10^3/uL (130-400); RDW 16.1 % (11.7-14.6); RDW-SD 51.8 fL
[2025-04-25 14:31] LABS: Abs Immature Grans 0.05 10^3/uL (0.0-0.06)
[2025-04-25 14:55] LABS: ALT 10 U/L (10-49); AST 14 U/L (<34); Albumin 4.4 g/dL (3.2-5.0); Alkaline Phosphatase 55 U/L (46-116); Anion Gap 6.8 mmol/L (3-11); BUN 11 mg/dL (9-23); Bilirubin, Total 0.3 mg/dL (0.2-1.2); CO2 25.2 mmol/L (20.0-31.0); Calcium 9.6 mg/dL (8.3-10.6); Chloride 109 mmol/L (98-107); Glucose 102 mg/dL (74-106); Potassium 4.4 mmol/L (3.5-5.1); Sodium 141 mmol/L (136-145); Total Protein 7.8 g/dL (5.7-8.2)
[2025-04-25 14:58] LABS: TSH 0.50 uIU/mL (0.55-4.78)
[2025-04-26 09:02] LABS: CEA 4.9 ng/mL (See Note)
== END 2025-04-25 08:22 | disposition home or self-care (01) ==
LOC: LBO 08:21
PROVIDERS: Visit Provider Internal Medicine Hematology & Oncology
DX: C18.9 Malignant neoplasm of colon, unspecified (principal); C78.7 Secondary malignant neoplasm of liver and intrahepatic bile duct
CPT/HCPCS: 36415; 80053; 82378; 84439; 84443; 85025